=== PATIENT | female | born 1950 | race Caucasian/White ===

== ENCOUNTER 2021-08-28 10:07 | Outpatient (RCR) | payer MEDICARE, BC, SELFPAY ==
[2021-08-28 11:02] LABS: Iron* 137 ug/dL (37-170)
[2021-08-28 11:12] LABS: Total Iron Binding Capacity 260 ug/dL (265-497)
[2021-08-28 11:53] LABS: D Dimer Quantitative* 11.18 ug/ml (0.00-0.50)
[2021-08-28 12:20] LABS: Percent Iron Saturation 53 % (20-50)
== END 2021-08-29 23:59 | disposition home or self-care (01) ==
LOC: CCIC 10:07
PROVIDERS: PCP Family Medicine; Visit Provider Internal Medicine Hematology & Oncology
DX: E03.9 Hypothyroidism, unspecified; R79.89 Other specified abnormal findings of blood chemistry
CPT/HCPCS: 36415; 82565; 82728; 83540; 83550; 84450; 84460; 85025; 85379

== ENCOUNTER 2021-08-28 10:44 | Outpatient (REF) | payer MEDICARE, BC, SELFPAY ==
[2021-08-28 13:08] LABS: Slide Review Reflex No
[2021-08-28 13:16] LABS: Basophils Percent Auto 0.5 % (0.0-3.0); Eosinophils Percent Auto 5.7 % (0.0-7.0); Hematocrit 41.3 % (33.0-51.0); Hemoglobin* 13.4 gm/dL (12.0-16.0); Immature Granulocytes Abs Auto 0.01 K/uL (0.00-0.30); Lymphocytes Percent Auto 25.7 % (20-44); Mean Corpuscular HGB Conc 32 gm/dL (32-36); Mean Corpuscular Hemoglobin 32 pg (26-34); Mean Corpuscular Volume 97 fL (80-100); Monocytes Percent Auto 7.5 % (0.0-11.0); Neutrophils Percent Auto 60.4 % (42.0-72.0); Platelet Count* 277 K/uL (140-440); RDW Coefficient of Variation % 14.2 % (11.5-15.5); Red Blood Count 4.25 m/uL (4.00-5.20); White Blood Count* 4.39 K/uL (4.50-11.00)
[2021-08-28 14:08] LABS: Alanine Aminotransferase* 21 U/L (4-35); Aspartate Amino Transferase* 45 U/L (12-35); Creatinine* 0.6 mg/dL (0.5-1.5)
== END 2021-08-28 10:45 | disposition home or self-care (01) ==
LOC: NPINS 10:44
PROVIDERS: PCP Family Medicine
DX: R79.89 Other specified abnormal findings of blood chemistry (principal); M06.9 Rheumatoid arthritis, unspecified; E03.9 Hypothyroidism, unspecified
CPT/HCPCS: 82565; 84450; 84460; 85025

== ENCOUNTER 2021-09-03 14:13 | Outpatient (RCR) | payer MEDICARE, BC, SELFPAY ==
--- NOTE | 2021-09-20 10:00 | ONC.NURNOTE ---
Received call from [facility] [employer] stating PET was not covered with that diagnosis so patient called and told test was not covered by insurance and she stated Yea I didn't think it would be, thought it might be over kill. Was asking for comparable test and let her know the CT scan she had was. Patient due for visit in January with labs.
== END 2021-09-03 23:59 | disposition home or self-care (01) ==
LOC: CCIC 14:13
PROVIDERS: PCP Family Medicine; Visit Provider Internal Medicine Hematology & Oncology
DX: R79.89 Other specified abnormal findings of blood chemistry (principal); J84.10 Pulmonary fibrosis, unspecified; M06.9 Rheumatoid arthritis, unspecified; D75.89 Other specified diseases of blood and blood-forming organs
CPT/HCPCS: 99213; 99214

== ENCOUNTER 2022-12-01 11:00 | Outpatient (RCR) | payer MEDICARE, BC, SELFPAY | END 2023-02-11 13:45 | disposition home or self-care (01) | PROVIDERS: Visit Provider Orthopaedic Surgery Sports Medicine | DX: M17.11 Unilateral primary osteoarthritis, right knee (principal); Z96.651 Presence of right artificial knee joint; M25.561 Pain in right knee; Z74.09 Other reduced mobility; R26.9 Unspecified abnormalities of gait and mobility; R53.1 Weakness; Z51.89 Encounter for other specified aftercare | CPT/HCPCS: 97110; 97116; 97140; 97161 ==

== ENCOUNTER 2023-03-10 12:52 | Outpatient (RCR) | payer MEDICARE, BC, SELFPAY | END 2023-09-06 23:59 | disposition home or self-care (01) | LOC: CCIC 12:52 | PROVIDERS: PCP Family Medicine; Visit Provider Internal Medicine Hematology & Oncology | DX: R79.89 Other specified abnormal findings of blood chemistry (principal); M06.9 Rheumatoid arthritis, unspecified; J84.10 Pulmonary fibrosis, unspecified | CPT/HCPCS: 99213; 99214; G0463 ==

== ENCOUNTER 2023-05-20 10:45 | Outpatient (RCR) | payer MEDICARE, BC, SELFPAY | END 2023-09-17 23:59 | disposition home or self-care (01) | PROVIDERS: PCP Family Medicine; Visit Provider Podiatrist | DX: M25.571 Pain in right ankle and joints of right foot (principal); M25.572 Pain in left ankle and joints of left foot; Z51.89 Encounter for other specified aftercare; M72.2 Plantar fascial fibromatosis | CPT/HCPCS: 97110; 97140; 97161 ==

== ENCOUNTER 2023-10-28 07:30 | Outpatient (RCR) | payer MEDICARE, BC, SELFPAY | END 2024-02-08 15:58 | disposition home or self-care (01) | PROVIDERS: PCP Family Medicine; Visit Provider Family Medicine | DX: M25.571 Pain in right ankle and joints of right foot (principal); M25.572 Pain in left ankle and joints of left foot; G89.29 Other chronic pain; R26.9 Unspecified abnormalities of gait and mobility; M70.51 Other bursitis of knee, right knee; M62.81 Muscle weakness (generalized); M25.561 Pain in right knee; Z51.89 Encounter for other specified aftercare | CPT/HCPCS: 97110; 97112; 97161 ==

== ENCOUNTER 2024-01-09 12:21 | Inpatient (IN) | payer MEDICARE, BC, SELFPAY ==
[2024-01-09] VITALS (11 sets, daily range): BP systolic 133–192; BP diastolic 73–113; PULSE 95–112; RESP 18; TEMP 37.6–39.9; O2SAT 92–98; BMI 31.6
--- NOTE | 2024-01-09 13:01 | CRLHL7_ITS ---
For Patients: As a result of the Cures Act, medical imaging exams and procedure reports are released immediately into your electronic medical record. You may view this report before your referring provider. If you have questions, please contact your health care provider. INDICATION: : Fever COMPARISON: Chest radiograph on September 16, [address] chest/abdomen/pelvis on May 08, 2020 TECHNIQUE: Two view(s) of the chest FINDINGS: The cardiomediastinal silhouette and pulmonary vasculature are unremarkable. There is no focal airspace consolidation, pleural effusion, or pneumothorax. Interstitial markings, particularly at the bilateral lung bases, consistent with pulmonary fibrosis. No displaced fractures. Calcified intra-articular loose bodies of the left shoulder and degenerative changes of the bilateral shoulders and spine. IMPRESSION: No acute cardiopulmonary process. Dictated by Blayne Daniel MD @ 01/09/2024 2:14:50 PM (Electronically Signed)
--- NOTE | 2024-01-09 13:14 | ED_ITS ---
HPI - General Adult General Date Seen: 01/09/24 Chief complaint: Weakness Stated complaint: Weakness Time Seen by Provider: 01/09/24 12:40 Source: patient, family, RN notes reviewed and old records reviewed Mode of arrival: ambulatory Limitations: no limitations History of Present Illness HPI narrative: Patient is a 73-year-old woman here with her for evaluation of generalized weakness. Her tells me that he went to bed around 9:00 a.m. last night and feels that she was okay at that point but overnight she got up or tried to get up several times, she says she was just getting up, she is not sure why, he thinks she probably was trying to get up to go to the bathroom. In any case, she was not able to support her weight and fell all 3 times. She did bump her right elbow on 1 of those falls but otherwise does not note any specific injuries. Denies focal weakness. She had 1 black stool. They noted a fever this morning of 101.7 along with chills. She has had a little bit of a cough, she denies abdominal pain, nausea or vomiting. No history of GI bleeding. She denies recent history of colonoscopy but her says she has a recent Cologuard that was normal. She is not anticoagulated. No ill contacts. She does not smoke or drink. Related Data Home Medications ?Medication ?Instructions ?Recorded ?Confirmed amlodipine 10 mg tablet 5 mg PO QDAY 09/03/21 01/09/24 calcium carbonate (Calcium 600) 600 mg PO BID 09/03/21 10/22/23 celecoxib 200 mg capsule 200 mg PO BID 09/03/21 10/22/23 etanercept 50 mg/mL (1 mL) 50 mg subcut QWEEK 09/03/21 01/09/24 subcutaneous syringe (Enbrel) folic acid 400 mcg tablet 1.2 mg PO QDAY 09/03/21 01/09/24 levetiracetam 750 mg tablet 750 mg PO QDAY 09/03/21 01/09/24 levothyroxine 125 mcg capsule 125 mcg PO QDAY 09/03/21 10/22/23 loratadine 10 mg tablet (Claritin) 10 mg PO QDAY 09/03/21 10/22/23 methotrexate (PF) 30 mg/0.6 mL 50 mg subcut QWEEK 09/03/21 01/09/24 subcutaneous auto-injector multivitamin 1 tab PO QAM 09/03/21 10/22/23 trazodone 50 mg tablet 100 mg PO QDAY 09/03/21 10/22/23 hydrochlorothiazide 25 mg tablet 25 mg PO DAILY 01/09/24 01/09/24 levetiracetam 500 mg 500 mg PO DAILY 01/09/24 01/09/24 tablet,extended release 24 hr lisinopril 40 mg tablet 40 mg PO DAILY 01/09/24 01/09/24 Allergies Allergy/AdvReac Type Severity Reaction Status Date / Time kiwi Allergy Severe Verified 01/09/24 18:01 erythromycin base Allergy Mild Irritable Verified 01/09/24 18:01 nickel Allergy Unknown Rash Verified 01/09/24 18:01 Review of Systems Status of ROS: Reports: 10 or more systems reviewed and unremarkable except as noted in History and below [facility] Medical History (Updated 01/09/24 @ 19:12 by Antonietta Sherwood MD) Essential hypertension ?I10 - Essential (primary) hypertension (ICD-10) Hypothyroidism ?E03.9 - Hypothyroidism, unspecified (ICD-10) Epilepsy ?G40.909 - Epilepsy, unspecified, not intractable, without status epilepticus (ICD-10) Depression ?F32.A - Depression, unspecified (ICD-10) Rheumatoid arthritis ?M06.9 - Rheumatoid arthritis, unspecified (ICD-10) Weight loss ?R63.4 - Abnormal weight loss (ICD-10) Osteoarthritis of right knee ?M17.11 - Unilateral primary osteoarthritis, right knee (ICD-10) Right ankle tendonitis ?M77.51 - Other enthesopathy of right foot and ankle (ICD-10) Surgical History (Updated 01/09/24 @ 16:58 by Antonietta Sherwood MD) History of ear surgery ?Z98.890 - Other specified postprocedural states (ICD-10) History of ankle surgery (03/19/04) ?Z98.890 - Other specified postprocedural states (ICD-10) History of bunionectomy of right great toe (03/25/05) ?Z98.890 - Other specified postprocedural states (ICD-10) S/P ORIF (open reduction internal fixation) fracture (09/09/11) ?Z98.890 - Other specified postprocedural states (ICD-10) ?Z87.81 - Personal history of (healed) traumatic fracture (ICD-10) Social History (Updated 01/09/24 @ 19:14 by Antonietta Sherwood MD) Narrative: to [place] for >50 years, he would be MDM if needed. Retired from [employer] (worked in [employer]). Former smoker. Requests Full Code status. What is your current living situation?: I presently have a place to live Problems where you live: no known problems Problems where you live details: no known problems In the past 12 months, utilities in danger of being shut off: no In past 12 months, lack of transportation kept you from medical appts, meetings, work, or getting things needed for daily living: no In the past 12 mos, have been you worried that your food would run out before you had money to buy more?: never true In the past 12 mos, the food you bought just didn't last and you didn't have money to buy more?: never true Highest level of school completed/degree received: Associate degree: academic program Smoking Status: Former smoker Do you use any of these nicotine containing products: None How often do you have a drink containing alcohol: never How often do you have six or more drinks on one occasion: Never AUDIT-C Alcohol total score: 0 Non-prescribed substance use: denies use How often does anyone, including family, friends and others, physically hurt you : never How often does anyone, including family, friends and others, insult or talk down to you: never How often does anyone, including family, friends and others, threaten you with harm: never How often does anyone, including family, friends and others, scream or curse at you: never service: No Exam Narrative: Exam Narrative: Vital signs as noted above. In general, an alert, nontoxic elderly woman. Head: Normocephalic, atraumatic. Eyes: Pupils are equal reactive. Extraocular movements are full. Conjunctivae are normal. ENT: Mucous membranes are moist. Throat is normal. Neck: Supple without lymphadenopathy. Heart: Regular rate and rhythm. No murmur or rub. Lungs: Coarse breath sounds bilaterally, no increased work of breathing. Abdomen: Soft and nontender. No organomegaly. Extremities: Well perfused. No edema. No calf tenderness. Pulses intact. Neurologic: Patient is alert and oriented to person and place. Speech is fluent. Face is symmetric. Moves all extremities equally. Memory seems not as reliable as her 's. Affect: Normal. Skin: Warm and dry. Well perfused. Const: Vital Signs, click to edit/add: Vital Signs - 24 hr 01/09/24 12:26 01/09/24 13:41 01/09/24 13:55 Temperature 99.7 F H Pulse Rate [Right Pulse Oximeter] 112 H Respiratory Rate 18 Blood Pressure Blood Pressure [Ri ght Upper Arm] 187/100 H Pulse Oximetry 98 96 96 Oxygen Delivery Me thod Room Air 01/09/24 14:02 01/09/24 14:31 01/09/24 15:07 Temperature Pulse Rate [Right Pulse Oximeter] Respiratory Rate Blood Pressure 192/113 H Blood Pressure [Ri ght Upper Arm] 180/109 H 189/87 H Pulse Oximetry Oxygen Delivery Me thod 01/09/24 16:03 Temperature Pulse Rate [Right Pulse Oximeter] Respiratory Rate Blood Pressure Blood Pressure [Ri ght Upper Arm] 172/90 H Pulse Oximetry Oxygen Delivery Me thod Documenting provider has reviewed patient's vital signs: yes Course Course ED Course: Patient presents with generalized weakness, reported fever, tachycardia. Also reports a single black stool. Will place an IV, give 500 mL of normal saline, blood work ordered to check a hemoglobin, type and screen ordered, as well as evaluation for infectious etiology of symptoms such as pneumonia, urinary tract infection, diverticulitis among others. Labs are notable for an elevated white blood cell count of 15.5 with a left shift, 91% neutrophils. Her hemoglobin notably is 13. Normal platelets. Sodium slightly low 130 remainder of the metabolic panel is normal. Blood sugar 119. Lactate is normal at 0.9 and procalcitonin is normal as well at 0.13. TSH is normal, LFTs unremarkable. CRP is elevated at 13.2. Urinalysis pretty unremarkable, 0-2 red cells and 0-2 white cells. She does seem somewhat confused here, I am not entirely clear what her baseline mental status is but it seems that her does feel she is confused as well today, she does not have any focal neurologic findings however. Chest x-ray was unremarkable by my review, negative per Radiology. She went on to have a CT of the chest abdomen and pelvis read as linked below. She does appear to have possibly a developing pneumonia, but I did recommend or that we do a lumbar puncture to rule out intracranial infection as a source for her fever and mild delirium. Risks and benefits discussed including a 10% risk of spinal headache this as a taking blood patch. He agreed to proceed. Procedure note: Initially patient was unable to remain in a seated position, she just was having difficulty understanding what we wanted her to do seemingly and it was difficult to hold her up. Therefore, we started with lying down position, landmarks identified, skin prepped sterilely and area was anesthetized. I made several attempts at that level and at 1 level up, did try sitting her up, but was unable to obtain spinal fluid. Case discussed with Dr. Sherwood, given patient's immune suppressed status is due to her rheumatoid arthritis, we elected to start her on Zosyn, blood cultures were done before antibiotics were started. Plan will be admission to the hospital. [employer] was able to obtain CSF and this is sent to lab as well. Vital Signs Vital signs: Initial Vital Signs Temperature 99.7 F H 01/09/24 12:26 Temperature Source Temporal Artery Scan 01/09/24 12:26 Pulse Rate 112 H 01/09/24 12:26 Pulse Rhythm Regular 01/09/24 12:26 Pulse Strength 3+ Normal 01/09/24 12:26 Respiratory Rate 18 01/09/24 12:26 Blood Pressure 187/100 H 01/09/24 12:26 Blood Pressure Mean 129 H 01/09/24 12:26 Blood Pressure Position Sitting 01/09/24 12:26 Pulse Oximetry 98 01/09/24 12:26 Oxygen Delivery Method Room Air 01/09/24 12:26 Vital Signs Temperature 99.7 F H 01/09/24 12:26 Pulse Rate 112 H 01/09/24 12:26 Respiratory Rate 18 01/09/24 12:26 Blood Pressure 187/100 H 01/09/24 12:26 Pulse Oximetry 98 01/09/24 12:26 Oxygen Delivery Method Room Air 01/09/24 12:26 Temperature 101.2 F H 01/09/24 19:00 Pulse Rate 95 01/09/24 19:00 Respiratory Rate 18 01/09/24 19:00 Blood Pressure 133/92 H 01/09/24 19:00 Pulse Oximetry 96 01/09/24 19:00 Oxygen Delivery Method Room Air 01/09/24 19:00 Medications Administered Medications: Generic Name Dose Route Start Last Admin Trade Name Coral PRN Reason Stop Dose Admin Vancomycin/PEG/NADA/Lysine/Water 1.25 gm in 250 mls @ 166.667 mls/hr 01/09/24 18:30 01/09/24 18:58 Vancomycin 1.25 Gm/250 Ml IVPB 166.67 mls/hr Q12H ODALIS Administration Discontinued Medications Generic Name Dose Route Start Last Admin Trade Name Freq PRN Reason Stop Dose Admin Sodium Chloride 500 mls @ 500 mls/hr 01/09/24 13:02 01/09/24 14:12 0.9 % Sodium Chloride 500 Ml IV 01/09/24 14:01 Infused .Q1H ONE Infusion Piperacillin Sod/Tazobactam 100 mls @ 100 mls/hr 01/09/24 16:01 01/09/24 16:35 Sod 3.375 gm/ Sodium Chloride IVPB 01/09/24 16:02 100 mls/hr ONCE ONE Administration Medical Decision Making Lab Data Labs: Lab Results 01/09/24 01/09/24 01/09/24 Range/Units 13:02 13:10 13:20 WBC 15.51 H (4.50-11.00) K/uL RBC 3.96 L (4.00-5.20) m/uL Hgb 13.0 (12.0-16.0) gm/dL Hct 39.7 (33.0-51.0) % MCV 100 (80-100) fL MCH 33 (26-34) pg MCHC 33 (32-36) gm/dL RDW Coeff of Mery 15.0 (11.5-15.5) % Plt Count 259 (140-440) K/uL Neut % (Auto) 90.8 H (42.0-72.0) % Lymph % (Auto) 3.2 L (20-44) % [place] % (Auto) 5.5 (0.0-11.0) % Eos % (Auto) 0.0 (0.0-7.0) % Baso % (Auto) 0.3 (0.0-3.0) % Neut # (Auto) 14.10 H (1.7-7.0) K/uL Lymph # (Auto) 0.50 L (0.90-2.90) K/uL [place] # (Auto) 0.90 (0.00-0.90) K/UL Eos # (Auto) 0.00 (0.00-0.50) K/uL Baso # (Auto) 0.00 (0.00-0.30) K/uL Abs Immat Gran (auto) 0.00 (0.00-0.30) K/uL Imm/Tot Granulo (auto) 0.2 % Sodium 130 L (135-149) mmol/L Potassium 4.2 (3.6-5.1) mmol/L Chloride 97 (96-114) mmol/L Carbon Dioxide 24 (20-32) mmol/L Anion Gap 9 (7-15) mEq/L BUN 11 (7-30) mg/dL Creatinine 0.6 (0.5-1.5) mg/dL Estimated Creat Clear 45.76 Estimated GFR 95 ml/min Glucose 119 H (60-115) mg/dL Lactate 0.9 (0.5-1.9) mmol/L Calcium 9.1 (8.4-10.6) mg/dL Total Bilirubin 0.7 (0.1-1.5) mg/dL Direct Bilirubin 0.3 (0.0-0.5) mg/dL AST 29 (12-35) U/L ALT 21 (4-35) U/L Alkaline Phosphatase 92 (40-150) U/L C-Reactive Protein 13.2 H (0.5-1.0) mg/dL Total Protein 7.1 (6.0-8.3) g/dL Albumin 4.2 (3.3-5.0) g/dL Procalcitonin 0.13 (<0.50) ng/mL TSH 0.429 (0.270-4.200) uIU/mL CSF Volume (0-6) mL CSF Appearance (Clear) CSF Color (Colorless) CSF WBC Cells/uL CSF RBC Cells/uL CSF Mononuclear Cells % CSF Polynuclear WBCs % CSF Glucose (40-70) mg/dL CSF Total Protein (15-45) Mg/dL SARS-CoV-2 (PCR) Negative SARS-CoV-2 (Negative) Influenza Type A (PCR) Negative PCR FLU A (Negative) Influenza Type B (PCR) Negative PCR FLU B (Negative) RSV (PCR) Negative PCR RSV (Negative) POC Troponin I 0.02 (0.01-0.04) ng/ml Blood Type O Positive Antibody Screen NEGATIVE 01/09/24 Range/Units 16:34 WBC (4.50-11.00) K/uL RBC (4.00-5.20) m/uL Hgb (12.0-16.0) gm/dL Hct (33.0-51.0) % MCV (80-100) fL MCH (26-34) pg MCHC (32-36) gm/dL RDW Coeff of Mery (11.5-15.5) % Plt Count (140-440) K/uL Neut % (Auto) (42.0-72.0) % Lymph % (Auto) (20-44) % [place] % (Auto) (0.0-11.0) % Eos % (Auto) (0.0-7.0) % Baso % (Auto) (0.0-3.0) % Neut # (Auto) (1.7-7.0) K/uL Lymph # (Auto) (0.90-2.90) K/uL [place] # (Auto) (0.00-0.90) K/UL Eos # (Auto) (0.00-0.50) K/uL Baso # (Auto) (0.00-0.30) K/uL Abs Immat Gran (auto) (0.00-0.30) K/uL Imm/Tot Granulo (auto) % Sodium (135-149) mmol/L Potassium (3.6-5.1) mmol/L Chloride (96-114) mmol/L Carbon Dioxide (20-32) mmol/L Anion Gap (7-15) mEq/L BUN (7-30) mg/dL Creatinine (0.5-1.5) mg/dL Estimated Creat Clear Estimated GFR ml/min Glucose (60-115) mg/dL Lactate (0.5-1.9) mmol/L Calcium (8.4-10.6) mg/dL Total Bilirubin (0.1-1.5) mg/dL Direct Bilirubin (0.0-0.5) mg/dL AST (12-35) U/L ALT (4-35) U/L Alkaline Phosphatase (40-150) U/L C-Reactive Protein (0.5-1.0) mg/dL Total Protein (6.0-8.3) g/dL Albumin (3.3-5.0) g/dL Procalcitonin (<0.50) ng/mL TSH (0.270-4.200) uIU/mL CSF Volume 8.0 H (0-6) mL CSF Appearance Clear (Clear) CSF Color Colorless (Colorless) CSF WBC 0 Cells/uL CSF RBC 2 Cells/uL CSF Mononuclear Cells 0 % CSF Polynuclear WBCs 0 % CSF Glucose 65 (40-70) mg/dL CSF Total Protein 46 H (15-45) Mg/dL SARS-CoV-2 (PCR) (Negative) Influenza Type A (PCR) (Negative) Influenza Type B (PCR) (Negative) RSV (PCR) (Negative) POC Troponin I (0.01-0.04) ng/ml Blood Type Antibody Screen Imaging Data CT Chest/Ab/Pelvis: Attestation: I have reviewed the pertinent imaging results. Radiologist's impression: Patient: WINNIE SCOTT Facility: [facility] Site . Site : 1950 Study: CT-Chest/Abd/Pelvis W/ 89CC ISOVUE 370-01/09/2024 2:34:16 PM Ordering Physician: Heather Otto Final Report: Indication: Fever Technique: Volumetric multidetector CT images of the chest, abdomen, and pelvis were obtained after the administration of intravenous contrast. 89 cc Isovue 370 low osmolar intravenous contrast Comparison: CT chest, abdomen and pelvis May 08, 2020 FINDINGS: CHEST The thoracic inlet is unremarkable. The thyroid gland is within normal limits. The thoracic aorta is nonaneurysmal. There is no filling defect to suggest pulmonary embolus. There is no mediastinal, hilar, or axillary adenopathy. There is [id number] basilar atelectasis and parenchymal scar with moderate pulmonary fibrosis of the peripheral lower lobes. There is questionable minimal airspace opacity within the right superior segment of the lower lobe and inferior segments of the right upper lobe commensurate with likely dense consolidations. The thoracic osseus structures are intact without fracture, lytic, or blastic lesion. The thoracic vertebral body heights are grossly maintained with minimal endplate Schmorl`s defects. There is no significant spondylolisthesis or displaced fracture. ABDOMEN AND PELVIS Minimal cystic change of the right liver is again seen. Otherwise the liver is grossly within normal limits. The spleen is normal in attenuation and size. The gallbladder is unremarkable without radiopaque calculus. There is no intrahepatic or common ductal dilatation. The stomach and duodenum are grossly unremarkable. The pancreas is normal in enhancement without significant atrophy. The adrenal glands are unremarkable without evidence of adenoma. There is interval atrophy of the right kidney with compensatory hypertrophy of the left kidney from remote comparison exam. No evidence of obvious obstructive calculus. There is demonstration of likely severe atherosclerotic narrowing at the origin of the right renal artery. Otherwise, corticomedullary differentiation is somewhat limited due to respiratory motion artifact. Subtle streaky defects within the inferior left kidney may be difficult to exclude. Moderate stool seen throughout the colon with fluid-filled central small bowel. The appendix is unremarkable without significant inflammatory change. The abdominal aorta is nonaneurysmal with no significant atherosclerotic disease. The remaining solid pelvic viscera are otherwise grossly unremarkable. There is no pathologically enlarged epigastric, mesenteric, retroperitoneal, or pelvic sidewall lymph node. The anterior abdominal wall is grossly intact without significant hernias. There is no free air or free fluid. The visualized osseous structures are grossly intact without evidence of displaced fracture, lytic or blastic lesion. The lumbar vertebral body heights are grossly maintained with minimal endplate Schmorl`s defects. There is moderate facet arthrosis. No evidence of lytic or blastic lesion. Impression: 1. Moderate pulmonary fibrotic changes of the peripheral lower lobes with increasing superimposed interstitial and ground-glass opacities which may representing worsening pneumonitis changes and/or developing superimposed infiltrates. No other dense consolidation is identified. 2. Interval development of right sided renal atrophy with likely high-grade atherosclerotic narrowing of the right renal artery with focal atherosclerotic plaque. There is compensatory hypertrophic changes of the left kidney. Somewhat limited evaluation of the kidneys with questionable corticomedullary streaks in the inferior left kidney which could represent developing pyelonephritis c hanges. Correlate with urinalysis and history of clinical symptoms. 3. No other acute intra-abdominal abnormality is appreciated.
[2024-01-09 13:21] LABS: Lactate Sepsis w/Reflex* 0.9 mmol/L (0.5-1.9)
[2024-01-09 13:24] LABS: Basophils Percent Auto 0.3 % (0.0-3.0); Hematocrit 39.7 % (33.0-51.0); Immature Granulocytes Pct Auto 0.2 %; Lymphocytes Percent Auto 3.2 % (20-44); Mean Corpuscular HGB Conc 33 gm/dL (32-36); Mean Corpuscular Hemoglobin 33 pg (26-34); Mean Corpuscular Volume 100 fL (80-100); Monocytes Percent Auto 5.5 % (0.0-11.0); Neutrophils Percent Auto 90.8 % (42.0-72.0); Platelet Count* 259 K/uL (140-440); Red Blood Count 3.96 m/uL (4.00-5.20); White Blood Count* 15.51 K/uL (4.50-11.00)
[2024-01-09 13:28] LABS: Slide Review Reflex No
[2024-01-09 13:30] LABS: Troponin, Point-of-Care* 0.02 ng/ml (0.01-0.04)
[2024-01-09 13:39] LABS: Chloride* 97 mmol/L (96-114); Potassium* 4.2 mmol/L (3.6-5.1); Sodium* 130 mmol/L (135-149)
[2024-01-09 13:40] LABS: Albumin* 4.2 g/dL (3.3-5.0)
[2024-01-09] MEDS: 0.9 % SODIUM CHLORIDE 500 ML 500 ML IV (13:40)
[2024-01-09 13:42] LABS: Creatinine* 0.6 mg/dL (0.5-1.5); Est. Creatinine Clearance* 45.76; Estimated Glomerular Filt Rate 95 ml/min
[2024-01-09 13:43] LABS: Anion Gap 9 mEq/L (7-15); Aspartate Amino Transferase* 29 U/L (12-35); Bilirubin Direct* 0.3 mg/dL (0.0-0.5); Bilirubin Total* 0.7 mg/dL (0.1-1.5); Blood Urea Nitrogen* 11 mg/dL (7-30); Calcium* 9.1 mg/dL (8.4-10.6); Carbon Dioxide* 24 mmol/L (20-32); Glucose* 119 mg/dL (60-115); Total Protein* 7.1 g/dL (6.0-8.3)
[2024-01-09 13:43] LABS: Appearance Urine Clear (Clear); Bilirubin Urine Negative (Negative); Blood Urine 1+ (Negative); Color Urine Yellow (Yellow); Glucose Urine Negative (Negative); Ketones Urine Negative (Negative); Leukocyte Esterase Urine Negative (Negative); Nitrite Urine Negative (Negative); Protein Urine 2+ (Negative); Urobilinogen Urine 0.2 (0.2-1.0)
[2024-01-09 13:44] LABS: Alanine Aminotransferase* 21 U/L (4-35); Alkaline Phosphatase* 92 U/L (40-150)
[2024-01-09 13:56] LABS: C Reactive Protein* 13.2 mg/dL (0.5-1.0)
[2024-01-09 14:00] LABS: Procalcitonin* 0.13 ng/mL (<0.50)
[2024-01-09 14:04] LABS: PCR FLU A Negative PCR FLU A (Negative); PCR FLU B Negative PCR FLU B (Negative); PCR RSV Negative PCR RSV (Negative); SARS PCR* Negative SARS-CoV-2 (Negative)
--- NOTE | 2024-01-09 14:08 | CRLHL7_ITS ---
For Patients: As a result of the Century Cures Act, medical imaging exams and procedure reports are released immediately into your electronic medical record. You may view this report before your referring provider. If you have questions, please contact your health care provider. Indication: Fever Technique: Volumetric multidetector CT images of the chest, abdomen, and pelvis were obtained after the administration of intravenous contrast. 89 cc Isovue 370 low osmolar intravenous contrast Comparison: CT chest, abdomen and pelvis May 08, 2020 FINDINGS: CHEST The thoracic inlet is unremarkable. The thyroid gland is within normal limits. The thoracic aorta is nonaneurysmal. There is no filling defect to suggest pulmonary embolus. There is no mediastinal, hilar, or axillary adenopathy. There is [id number] basilar atelectasis and parenchymal scar with moderate pulmonary fibrosis of the peripheral lower lobes. There is questionable minimal airspace opacity within the right superior segment of the lower lobe and inferior segments of the right upper lobe commensurate with likely dense consolidations. The thoracic osseus structures are intact without fracture, lytic, or blastic lesion. The thoracic vertebral body heights are grossly maintained with minimal endplate Schmorl`s defects. There is no significant spondylolisthesis or displaced fracture. ABDOMEN AND PELVIS Minimal cystic change of the right liver is again seen. Otherwise the liver is grossly within normal limits. The spleen is normal in attenuation and size. The gallbladder is unremarkable without radiopaque calculus. There is no intrahepatic or common ductal dilatation. The stomach and duodenum are grossly unremarkable. The pancreas is normal in enhancement without significant atrophy. The adrenal glands are unremarkable without evidence of adenoma. There is interval atrophy of the right kidney with compensatory hypertrophy of the left kidney from remote comparison exam. No evidence of obvious obstructive calculus. There is demonstration of likely severe atherosclerotic narrowing at the origin of the right renal artery. Otherwise, corticomedullary differentiation is somewhat limited due to respiratory motion artifact. Subtle streaky defects within the inferior left kidney may be difficult to exclude. Moderate stool seen throughout the colon with fluid-filled central small bowel. The appendix is unremarkable without significant inflammatory change. The abdominal aorta is nonaneurysmal with no significant atherosclerotic disease. The remaining solid pelvic viscera are otherwise grossly unremarkable. There is no pathologically enlarged epigastric, mesenteric, retroperitoneal, or pelvic sidewall lymph node. The anterior abdominal wall is grossly intact without significant hernias. There is no free air or free fluid. The visualized osseous structures are grossly intact without evidence of displaced fracture, lytic or blastic lesion. The lumbar vertebral body heights are grossly maintained with minimal endplate Schmorl`s defects. There is moderate facet arthrosis. No evidence of lytic or blastic lesion. Impression: 1. Moderate pulmonary fibrotic changes of the peripheral lower lobes with increasing superimposed interstitial and ground-glass opacities which may representing worsening pneumonitis changes and/or developing superimposed infiltrates. No other dense consolidation is identified. 2. Interval development of right sided renal atrophy with likely high-grade atherosclerotic narrowing of the right renal artery with focal atherosclerotic plaque. There is compensatory hypertrophic changes of the left kidney. Somewhat limited evaluation of the kidneys with questionable corticomedullary streaks in the inferior left kidney which could represent developing pyelonephritis changes. Correlate with urinalysis and history of clinical symptoms. 3. No other acute intra-abdominal abnormality is appreciated. Please note that all CT scans at this facility use dose modulation, iterative reconstruction, and/or weight-based dosing when appropriate to reduce radiation dose to as low as reasonably achievable. Dictated by Jerrod Grigsby MD @ 01/09/2024 3:13:27 PM (Electronically Signed)
[2024-01-09 14:09] LABS: Bacteria Urine Few; RBC Urine 0-2 (0-2); Squamous Epithelial Cell Urine Few (None-Few); WBC Urine 0-2 (0-5)
[2024-01-09 14:33] LABS: TSH With Reflex to FT4* 0.429 uIU/mL (0.270-4.200)
--- NOTE | 2024-01-09 16:11 | RESP.RT ---
Assisted with positioning patient for lumbar puncture, and monitoring.
[2024-01-09] MEDS: PIPERACILLIN/TAZOBACTAM 3.375 GM in 0.9 % SODIUM CHLORIDE Mini-bag 100 ML IVPB (16:35)
--- NOTE | 2024-01-09 16:54 | PM.PRCPDLP ---
Lumbar Puncture Procedure Performed by:: BENITO Time Seen by Provider: 16:20 Date Seen: 01/09/24 Date of procedure: 01/09/24 Pre-op diagnosis: infection Post-op diagnosis: same Position: sitting Prep: chlorhexidine Anesthesia: 1 % Lidocaine Sedation: none Needle size: 22ga Needle length: 3.5 Interspace: L3-4 Number of attempts: 1 Opening pressure: not done Fluids mLs collected: 6 Fluid description: clear Complications: No Patient tolerance: Tolerated procedure well Procedure performed by: Manfred Lam Condition: stable Disposition: floor
--- NOTE | 2024-01-09 16:58 | W.ANESCHARGE ---
Anesthesia Charges Start Date/Time Anesthesia Start Date: 01/09/24 Anesthesia Start Time: 16:20 Stop Date/Time Anesthesia Stop Date: 01/09/24 Anesthesia Stop Time: 16:45 Summary Extremes of Age - Over 70 or under 1: RESIDENTIAL MORTGAGE MANAGER
--- NOTE | 2024-01-09 16:59 | P.IMHP_ITS ---
Hospitalist- H&P: HPI History of Present Illness Date Seen: 01/09/24 Chief complaint: Weakness Narrative: Brenda Malcolm is a 73 year old female who presented to the ER for weakness and fever. Sherry assists with history. Last night, patient went to bed in normal state of health. Fell thrice overnight (presumably getting up to use the bathroom), no concern for head injury or LOC. She did bump her R elbow during a fall, has a small abrasion. Had one dark stool overnight. Notes mild diffuse abdominal discomfort. No back pain or dysuria. Intermittent R jaw pain during the day. No recent dental visits or infections. This morning, still weak with a fever (T >101), presented to who recommended ER. ER Course and Findings: - temperature of 99.7, HR 112, WBC 15 with PMN predominance - no acute abnormalities on EKG - CT C/A/P: lower lobe fibrotic changes with GGOs (worsening pneumonitis and/or developing infiltrates), also noted to have R sided renal atrophy with concern for high grade atherosclerotic narrowing of R renal artery - UA reassuring - HGb 13, normal MCV, BUN 11, Cr 0.6, CRP 13, procalcitonin wnl - LP performed by DATA BASE ADMINISTRATOR - BCx x1 obtained, treated with Zosyn - seemed confused, mildly restless. No localized neurological findings Upon arrival to the floor, patient's temperature was 100; on visual exam she had R sided facial/jaw edema. notes this was not present in the ER. CT neck ordered urgently, results + for R parotitis. Histories updated below, Dr. Sharon Sims is PCP at [facility]. Review of Systems Narrative: - no other concerns noted [facility] Medical History (Updated 01/09/24 @ 20:02 by Antonietta Sherwood MD) Essential hypertension ?I10 - Essential (primary) hypertension (ICD-10) Hypothyroidism ?E03.9 - Hypothyroidism, unspecified (ICD-10) Epilepsy ?G40.909 - Epilepsy, unspecified, not intractable, without status epilepticus (ICD-10) Depression ?F32.A - Depression, unspecified (ICD-10) Rheumatoid arthritis ?M06.9 - Rheumatoid arthritis, unspecified (ICD-10) Weight loss ?R63.4 - Abnormal weight loss (ICD-10) Osteoarthritis of right knee ?M17.11 - Unilateral primary osteoarthritis, right knee (ICD-10) Right ankle tendonitis ?M77.51 - Other enthesopathy of right foot and ankle (ICD-10) Surgical History (Updated 01/09/24 @ 16:58 by Antonietta Sherwood MD) History of ear surgery ?Z98.890 - Other specified postprocedural states (ICD-10) History of ankle surgery (03/19/04) ?Z98.890 - Other specified postprocedural states (ICD-10) History of bunionectomy of right great toe (03/25/05) ?Z98.890 - Other specified postprocedural states (ICD-10) S/P ORIF (open reduction internal fixation) fracture (09/09/11) ?Z98.890 - Other specified postprocedural states (ICD-10) ?Z87.81 - Personal history of (healed) traumatic fracture (ICD-10) Social History (Updated 01/09/24 @ 19:14 by Antonietta Sherwood MD) Narrative: to [place] for >50 years, he would be MDM if needed. Retired from [email or web address] (worked in [employer]). Former smoker. Requests Full Code status. What is your current living situation?: I presently have a place to live Problems where you live: no known problems Problems where you live details: no known problems In the past 12 months, utilities in danger of being shut off: no In past 12 months, lack of transportation kept you from medical appts, meetings, work, or getting things needed for daily living: no In the past 12 mos, have been you worried that your food would run out before you had money to buy more?: never true In the past 12 mos, the food you bought just didn't last and you didn't have money to buy more?: never true Highest level of school completed/degree received: Associate degree: academic program Smoking Status: Former smoker Do you use any of these nicotine containing products: None How often do you have a drink containing alcohol: never How often do you have six or more drinks on one occasion: Never AUDIT-C Alcohol total score: 0 Non-prescribed substance use: denies use How often does anyone, including family, friends and others, physically hurt you : never How often does anyone, including family, friends and others, insult or talk down to you: never How often does anyone, including family, friends and others, threaten you with harm: never How often does anyone, including family, friends and others, scream or curse at you: never service: No Meds Home Medications and Allergies Home Medications ?Medication ?Instructions ?Recorded ?Confirmed ?Type amlodipine 10 mg tablet 5 mg PO QDAY 09/03/21 01/09/24 History calcium carbonate (Calcium 600) 600 mg PO BID 09/03/21 10/22/23 History celecoxib 200 mg capsule 200 mg PO BID 09/03/21 10/22/23 History etanercept 50 mg/mL (1 mL) 50 mg subcut QWEEK 09/03/21 01/09/24 History subcutaneous syringe (Enbrel) folic acid 400 mcg tablet 1.2 mg PO QDAY 09/03/21 01/09/24 History levetiracetam 750 mg tablet 750 mg PO QDAY 09/03/21 01/09/24 History levothyroxine 125 mcg capsule 125 mcg PO QDAY 09/03/21 10/22/23 History loratadine 10 mg tablet (Claritin) 10 mg PO QDAY 09/03/21 10/22/23 History methotrexate (PF) 30 mg/0.6 mL 50 mg subcut QWEEK 09/03/21 01/09/24 History subcutaneous auto-injector multivitamin 1 tab PO QAM 09/03/21 10/22/23 History trazodone 50 mg tablet 100 mg PO QDAY 09/03/21 10/22/23 History hydrochlorothiazide 25 mg tablet 25 mg PO DAILY 01/09/24 01/09/24 History levetiracetam 500 mg 500 mg PO DAILY 01/09/24 01/09/24 History tablet,extended release 24 hr lisinopril 40 mg tablet 40 mg PO DAILY 01/09/24 01/09/24 History Allergies Allergy/AdvReac Type Severity Reaction Status Date / Time kiwi Allergy Severe Verified 01/09/24 18:01 erythromycin base Allergy Mild Irritable Verified 01/09/24 18:01 nickel Allergy Unknown Rash Verified 01/09/24 18:01 Exam Narrative: Exam Narrative: GEN: Awake in bed, does not appear toxic HEENT: Erythema and edema over R face/jaw, + induration. No fluctuance. No trismus, no obvious dental caries. No cervical adenopathy. Patient did not tolerate exam of parotid gland well, no obvious purulent discharge noted CV: Sinus tachycardia, no obvious murmurs R: LCTA bilaterally without concerning wheezing Ext: Thin extremities with Skin: Erythema over R jaw and neck. Small abrasion R elbow Neuro: No focal deficits on limited exam, no resting tremor Psych: Answering most questions appropriately, distracted but redirectable, appears restless Const: Vital Signs, click to edit/add: Vital Signs - 24 hr 01/09/24 12:26 01/09/24 13:41 01/09/24 13:55 Temperature 99.7 F H Pulse Rate [Right Pulse Oximeter] 112 H Respiratory Rate 18 Blood Pressure Blood Pressure [Ri ght Upper Arm] 187/100 H Pulse Oximetry 98 96 [facility] 01/09/24 14:02 01/09/24 14:31 01/09/24 15:07 Temperature Pulse Rate [Right Pulse Oximeter] Respiratory Rate Blood Pressure 192/113 H Blood Pressure [Ri ght Upper Arm] 180/109 H 189/87 H Pulse Oximetry Oxygen Delivery Me thod 01/09/24 16:03 Temperature Pulse Rate [Right Pulse Oximeter] Respiratory Rate Blood Pressure Blood Pressure [Ri ght Upper Arm] 172/90 H Pulse Oximetry [facility] - H&P: Result Labs Labs: Short CBC 01/09/24 Range/Units 13:10 WBC 15.51 H (4.50-11.00) K/uL Hgb 13.0 (12.0-16.0) gm/dL Hct 39.7 (33.0-51.0) % Plt Count 259 (140-440) K/uL BMP 01/09/24 13:10 Sodium 130 L Potassium 4.2 Chloride 97 Carbon Dioxide 24 BUN 11 Creatinine 0.6 Glucose 119 H Calcium 9.1 Liver Function 01/09/24 Range/Units 13:10 Total Bilirubin 0.7 (0.1-1.5) mg/dL Direct Bilirubin 0.3 (0.0-0.5) mg/dL AST 29 (12-35) U/L ALT 21 (4-35) U/L Alkaline Phosphatase 92 (40-150) U/L Albumin 4.2 (3.3-5.0) g/dL Urine 01/09/24 Range/Units Unknown Urine Color Yellow (Yellow) Urine Appearance Clear (Clear) Urine pH 7.0 (5.0-8.5) Ur Specific [place] 1.020 (1.000-1.030) Urine Protein 2+ A (Negative) Urine Glucose (UA) Negative (Negative) Assessment and Plan Assessment and plan (1) Sepsis: Problem comment: - as evidenced by fever, leukocytosis with PMN predominance, tachycardia - parotitis most likely source - LP performed in ED (prior to facial edema/erythema), results pending, BCx also pending Status: Acute (2) Confusion: Problem comment: - presumably 2/2 acute illness/fever, doesn't appear post-ictal - monitor closely, anticipate improvement with antibiotic therapy Status: Acute (3) Parotitis, acute: Problem comment: - transition from Zosyn to Unasyn + Vancomycin 01/09/24 - per chart review, has had multiple episodes of this, last hospitalized in July [address] [facility], I&D performed at that time (Haemophilis and Parainfluenza on path) - has previously seen ENT as an outpatient to discuss surgical intervention Status: Acute (4) Epilepsy: Problem comment: - first seizure 2011, last seizure 2021 - follows with Dr. Lam of Neurology, on Keppra (dose recently decreased from 750 -->500mg per chart review) - Last MRI 2022, results below: IMPRESSION: 1. No evidence of acute ischemic infarction intracranial hemorrhage or mass. 2. Supratentorial cerebral white matter signal changes are nonspecific but consistent with chronic small vessel ischemic disease less likely chronic de myelination. 3. Few opacified left mastoid air cells. Status: Acute (5) Essential hypertension: Problem comment: - continue home HCTZ and Amlodipine during stay - holding Lisinopril given CT contrast administration x2 on 01/08 and new renal findings on imaging Status: Acute (6) Rheumatoid arthritis: Problem comment: - on Enbrel and Methotrexate as an outpatient (holding these on admission) - Business Insight And Analytics Manager is Dr. Debbie Louis in [place], [facility], ph# [phone] Status: Acute (7) Renal atrophy, right: Problem comment: - incidental finding on CT 01/09/24, in addition to likely high grade narrowing of the renal artery - normal renal function - outpatient f/u for this Status: Acute (8) Lung nodule seen on imaging study: Problem comment: - 4mm, L apical - seen on CT of neck - outpatient f/u Status: Acute
[2024-01-09 17:15] LABS: Glucose, CSF* 65 mg/dL (40-70); Total Protein, CSF 46 Mg/dL (15-45)
--- NOTE | 2024-01-09 17:21 | CRLHL7_ITS ---
For Patients: As a result of the Century Cures Act, medical imaging exams and procedure reports are released immediately into your electronic medical record. You may view this report before your referring provider. If you have questions, please contact your health care provider. INDICATION: Erythema and edema right mandible. TECHNIQUE: CT soft tissue of the neck was acquired with 99 cc Isovue 370 IV contrast. COMPARISON: None. FINDINGS: Exam is limited by patient motion. Skull base: Unremarkable. Pharynx/Larynx/Trachea: Epiglottis is normal. Airway is patent. Adjacent soft tissues are normal. Salivary glands: Right parotid gland is enlarged and edematous with surrounding soft tissue edema/inflammation. Remainder of the salivary glands are unremarkable. Thyroid gland: Unremarkable. No significant nodules. Lymph nodes: No lymphadenopathy. Vessels: Unremarkable for age. Bones: Unremarkable for age. Misc: No inflammation, mass or fluid collection. Lung apices: A 4 mm nodule is in the anterior left lung apex series 3, image 86. IMPRESSION: 1. Acute right-sided parotitis. 2. Indeterminate 4 mm left apical lung nodule. Please note that all CT scans at this facility use dose modulation, iterative reconstruction, and/or weight-based dosing when appropriate to reduce radiation dose to as low as reasonably achievable. Dictated by Chino Gorman MD @ 01/09/2024 6:18:19 PM (Electronically Signed)
[2024-01-09 17:27] LABS: Appearance CSF Clear (Clear); Color CSF Colorless (Colorless)
[2024-01-09 17:28] LABS: CSF Mononuclear Cells 0 %; CSF Polynuclear Cells 0 %; RBC, CSF 2 Cells/uL; WBC, CSF 0 Cells/uL
[2024-01-09] MEDS: VANCOMYCIN 1.25 GM/250 ML 1.25 GM/250 ML PIGGYBACK IVPB (18:58)
[2024-01-09] MEDS: AMLODIPINE 10 MG TABLET 5 MG PO (19:36)
[2024-01-09] MEDS: AMPICILLIN/SULBACTAM 1.5 GM in 0.9 % SODIUM CHLORIDE Mini-bag 100 ML IVPB (21:04)
[2024-01-09] MEDS: 0.9 % SODIUM CHLORIDE 1000 ml 1,000 ML 100 ML IV (22:41)
[2024-01-09] MEDS: IBUPROFEN 600 MG TABLET PO (23:24)
[2024-01-10] VITALS (12 sets, daily range): BP systolic 144–161; BP diastolic 66–81; PULSE 85–97; RESP 18; TEMP 36.8–37.7; O2SAT 95–97
[2024-01-10] MEDS: AMPICILLIN/SULBACTAM 1.5 GM in 0.9 % SODIUM CHLORIDE Mini-bag 100 ML IVPB ×4 (04:36→19:31)
--- NOTE | 2024-01-10 06:41 | PC.NURSE ---
Shift note: Pt was confused and disoriented at the start of the shift. She had fever of 101.2 and 103.9 at 1900 and 2300 respectfully. MD informed and ordered Ibuprofen. Temp rechecked at 0000 and 0400 were 99.9 and 99.3 respectively. Pt appeared more alert and oriented at 0400. A2 to bedside commode. Pt had good sleep. Droplet precaution ensured.
[2024-01-10 06:49] LABS: Chloride* 101 mmol/L (96-114); Sodium* 131 mmol/L (135-149)
[2024-01-10 06:50] LABS: Potassium* 3.2 mmol/L (3.6-5.1)
[2024-01-10 06:52] LABS: Creatinine* 0.6 mg/dL (0.5-1.5); Est. Creatinine Clearance* 45.76; Estimated Glomerular Filt Rate 95 ml/min
[2024-01-10 06:53] LABS: Anion Gap 7 mEq/L (7-15); Blood Urea Nitrogen* 13 mg/dL (7-30); Carbon Dioxide* 23 mmol/L (20-32)
[2024-01-10 06:56] LABS: Calcium* 8.4 mg/dL (8.4-10.6); Glucose* 133 mg/dL (60-115)
[2024-01-10] MEDS: VANCOMYCIN 1.25 GM/250 ML 1.25 GM/250 ML PIGGYBACK IVPB (07:05)
[2024-01-10 07:08] LABS: C Reactive Protein* 16.6 mg/dL (0.5-1.0)
[2024-01-10 07:24] LABS: Basophils Percent Auto 0.1 % (0.0-3.0); Hematocrit 36.8 % (33.0-51.0); Immature Granulocytes Pct Auto 0.7 %; Lymphocytes Percent Auto 3.1 % (20-44); Mean Corpuscular HGB Conc 33 gm/dL (32-36); Mean Corpuscular Hemoglobin 33 pg (26-34); Mean Corpuscular Volume 100 fL (80-100); Monocytes Percent Auto 7.1 % (0.0-11.0); Platelet Count* 237 K/uL (140-440); RDW Coefficient of Variation % 14.8 % (11.5-15.5); Red Blood Count 3.67 m/uL (4.00-5.20); White Blood Count* 24.81 K/uL (4.50-11.00)
[2024-01-10 07:31] LABS: Slide Review Reflex No
[2024-01-10] MEDS: AMLODIPINE 10 MG TABLET 5 MG PO (10:01)
[2024-01-10] MEDS: levETIRAcetam 500 MG TABLET PO (10:02)
[2024-01-10] MEDS: POTASSIUM BICARB 25 MEQ EFFERVESCENT TAB PO ×2 (10:41→12:32)
[2024-01-10] MEDS: 0.9 % SODIUM CHLORIDE 1000 ml 1,000 ML 100 ML IV (11:34)
--- NOTE | 2024-01-10 14:38 | PM.IMPN1 ---
Progress Note: A&P Assessment and plan (1) Sepsis: Problem details: - as evidenced by fever, leukocytosis with PMN predominance, tachycardia - parotitis most likely source - LP performed in ED (prior to facial edema/erythema), results pending, BCx also pending - 01/09 improving. Status: Acute (2) Confusion: Problem details: - presumably 2/2 acute illness/fever, doesn't appear post-ictal - monitor closely, anticipate improvement with antibiotic therapy - improving Status: Acute (3) Parotitis, acute: Problem details: - transition from Zosyn to Unasyn + Vancomycin 01/09/24 - per chart review, has had multiple episodes of this, last hospitalized in July 2023 at [facility], I&D performed at that time (Haemophilis and Parainfluenza on path) - has previously seen ENT as an outpatient to discuss surgical intervention - 01/[address] Henrietta Bullock over the phone who agreed with medical management. He recommended, in addition to IV antibiotics, hot packs several times a day, okay to advance diet as tolerated, milk the parotid gland after every meal as pain will allow. I relayed these recommendations to the patient and her family. Have ordered for hot pack 4 times a day. Status: Acute (4) Epilepsy: Problem details: - first seizure 2011, last seizure 2021 - follows with Dr. Lam of Neurology, on Keppra (dose recently decreased from 750 -->500mg per chart review) - Last MRI 2022, results below: IMPRESSION: 1. No evidence of acute ischemic infarction intracranial hemorrhage or mass. 2. Supratentorial cerebral white matter signal changes are nonspecific but consistent with chronic small vessel ischemic disease less likely chronic demyelination. 3. Few opacified left mastoid air cells. Status: Chronic (5) Essential hypertension: Problem details: - continue home HCTZ and Amlodipine during stay - holding Lisinopril given CT contrast administration x2 on 01/08 and new renal findings on imaging Status: Chronic (6) Rheumatoid arthritis: Problem details: - on Enbrel and Methotrexate as an outpatient (holding these on admission) - Hat Brim Curler is Dr. Debbie Louis in [place], [facility], ph# [phone] Status: Chronic (7) Renal atrophy, right: Problem details: - incidental finding on CT 01/09/24, in addition to likely high grade narrowing of the renal artery - normal renal function - outpatient f/u for this Status: Acute (8) Lung nodule seen on imaging study: Problem details: - 4mm, L apical - seen on CT of neck - outpatient f/u Status: Acute Subjective Time Seen by Provider: 09:45 Date Seen: 01/10/24 Interval history: Brenda's , Devyn was at her bedside. He called their daughter, Itzel, who was on speaker phone. Alissa told me that she is feeling a bit better today. Devyn noted that she was much more alert and less confused today. He noted that she still had some confusion, but it was much better. He and Itzel told me that Alissa had been to the outpatient ENT appointment and discussed parotidectomy, but ultimately decided not to go forward with that. Since this is her 3rd episode on the same side of her face now, they are more strongly considering surgery in the future. He has been helping her express her parotid gland on the right side once a day at home. Exam Narrative: Exam Narrative: General: No acute distress. Awake, alert, oriented x3. No pallor. No jaundice. Right face and jaw are edematous, no erythema today. No fluctuance or trismus. Patient allowed minimal palpation of the parotid gland on the right. There was no obvious purulence discharge noted. Oropharynx: Clear. Mucous membranes moist. Cardiovascular: Regular rate and rhythm. No murmurs, gallops, or rubs. Respiratory: Clear to auscultation bilaterally. No wheezes or crackles. Abdomen: Bowel sounds present. Soft, nondistended, nontender. Extremities: No pedal edema. Const: Vital Signs, click to edit/add: Vital Signs - 24 hr 01/09/24 15:07 01/09/24 16:03 01/09/24 18:20 Temperature 100 F H Pulse Rate Pulse Rate [Pulse Oximeter] 100 Respiratory Rate 18 Blood Pressure [Ri ght Arm] 179/92 H Blood Pressure [Ri ght Upper Arm] 189/87 H 172/90 H Pulse Oximetry 96 Oxygen Delivery Me thod Room Air 01/09/24 18:20 01/09/24 19:00 01/09/24 22:32 Temperature 101.2 F H Pulse Rate Pulse Rate [Pulse Oximeter] 95 95 Respiratory Rate 18 18 18 Blood Pressure [Ri ght Arm] 133/92 H Blood Pressure [Ri ght Upper Arm] Pulse Oximetry 96 96 Oxygen Delivery Me thod Room Air Room Air 01/09/24 22:32 01/09/24 22:32 01/09/24 23:30 Temperature 103.9 F H 100.9 F H Pulse Rate Pulse Rate [Pulse Oximeter] 95 Respiratory Rate 18 18 Blood Pressure [Ri ght Arm] 138/73 Blood Pressure [Ri ght Upper Arm] Pulse Oximetry 92 92 Oxygen Delivery Me thod Room Air Room Air 01/10/24 03:00 01/10/24 04:34 01/10/24 04:48 Temperature 99.3 F 99.9 F H Pulse Rate 87 Pulse Rate [Pulse Oximeter] 85 Respiratory Rate 18 Blood Pressure [Ri ght Arm] 146/73 H Blood Pressure [Ri ght Upper Arm] Pulse Oximetry 97 Oxygen Delivery Me thod Room Air 01/10/24 07:30 01/10/24 10:25 01/10/24 10:28 Temperature 99.4 F Pulse Rate Pulse Rate [Pulse Oximeter] 91 91 Respiratory Rate 18 18 18 Blood Pressure [Ri ght Arm] 152/77 H Blood Pressure [Ri ght Upper Arm] Pulse Oximetry 97 97 Oxygen Delivery Me thod Room Air Room Air 01/10/24 11:19 01/10/24 11:48 Temperature 99.1 F Pulse Rate 90 Pulse Rate [Pulse Oximeter] 93 Respiratory Rate 18 Blood Pressure [Ri ght Arm] 161/81 H Blood Pressure [Ri ght Upper Arm] Pulse Oximetry 96 Oxygen Delivery Me thod Room Air Labs Labs: Laboratory Results - last 24 hr 01/09/24 01/09/24 01/09/24 13:10 16:34 18:23 WBC RBC Hgb Hct MCV MCH MCHC RDW Coeff of Mery Plt Count Neut % (Auto) Lymph % (Auto) [place] % (Auto) Eos % (Auto) Baso % (Auto) Neut # (Auto) Lymph # (Auto) [place] # (Auto) Eos # (Auto) Baso # (Auto) Abs Immat Gran (auto) Imm/Tot Granulo (auto) Sodium Potassium Chloride Carbon Dioxide Anion Gap BUN Creatinine Estimated Creat Clear Estimated GFR Glucose Calcium C-Reactive Protein CSF Volume 8.0 H CSF Appearance Clear CSF Color Colorless CSF WBC 0 CSF RBC 2 CSF Mononuclear Cells 0 CSF Polynuclear WBCs 0 CSF Glucose 65 CSF Total Protein 46 H Lab Acknowledgement Test Added Blood Type O Positive Antibody Screen NEGATIVE 01/10/24 05:55 WBC 24.81 H RBC 3.67 L Hgb 12.0 Hct 36.8 MCV 100 MCH 33 MCHC 33 RDW Coeff of Mery 14.8 Plt Count 237 Neut % (Auto) 89.0 H Lymph % (Auto) 3.1 L [place] % (Auto) 7.1 Eos % (Auto) 0.0 Baso % (Auto) 0.1 Neut # (Auto) 22.10 H Lymph # (Auto) 0.80 L [place] # (Auto) 1.80 H Eos # (Auto) 0.00 Baso # (Auto) 0.00 Abs Immat Gran (auto) 0.20 Imm/Tot Granulo (auto) 0.7 Sodium 131 L Potassium 3.2 L Chloride 101 Carbon Dioxide 23 Anion Gap 7 BUN 13 Creatinine 0.6 Estimated Creat Clear 45.76 Estimated GFR 95 Glucose 133 H Calcium 8.4 C-Reactive Protein 16.6 H CSF Volume CSF Appearance CSF Color CSF WBC CSF RBC CSF Mononuclear Cells CSF Polynuclear WBCs CSF Glucose CSF Total Protein Lab Acknowledgement Blood Type Antibody Screen
--- NOTE | 2024-01-10 15:44 | PC.NURSE ---
End of Shift: patient pleasant and cooperative. VSS, slight low grade fever this shift, 99.4 this morning, and then dropped to 99.1. Patient reports pain in her right cheek this shift managed with aqua-k pad. Clear liquid diet. 1-2A with gait belt.
[2024-01-10] MEDS: ACETAMINOPHEN 325 MG TABLET 975 MG PO ×2 (16:26→23:33)
[2024-01-11] VITALS (8 sets, daily range): BP systolic 137–166; BP diastolic 74–101; PULSE 75–91; RESP 17–20; TEMP 36.9–37.6; O2SAT 94–98
[2024-01-11] MEDS: AMPICILLIN/SULBACTAM 1.5 GM in 0.9 % SODIUM CHLORIDE Mini-bag 100 ML IVPB ×4 (01:18→20:33)
--- NOTE | 2024-01-11 06:09 | PC.NURSE ---
Pt alert, oriented and vitally stable. Pt used call light appropriately throughout shift and was continent. Pt moves via SBA but does occasionally have an unsteady gait, though pt states this is baseline. Aqua K to face as tolerated throughout shift. IV patent in both arms. Pt did have a headache rated 4/10, prn Tylenol given and pt stated improvement. Pt appears to be resting throughout shift, call light in reach.
[2024-01-11] MEDS: 0.9 % SODIUM CHLORIDE 1000 ml 1,000 ML 100 ML IV (06:37)
[2024-01-11 07:55] LABS: Basophils Percent Auto 0.2 % (0.0-3.0); Eosinophils Percent Auto 0.3 % (0.0-7.0); Hematocrit 34.5 % (33.0-51.0); Hemoglobin* 11.4 gm/dL (12.0-16.0); Immature Granulocytes Pct Auto 0.2 %; Lymphocytes Percent Auto 3.8 % (20-44); Mean Corpuscular HGB Conc 33 gm/dL (32-36); Mean Corpuscular Hemoglobin 33 pg (26-34); Mean Corpuscular Volume 100 fL (80-100); Monocytes Percent Auto 5.4 % (0.0-11.0); Neutrophils Percent Auto 90.1 % (42.0-72.0); Platelet Count* 230 K/uL (140-440); RDW Coefficient of Variation % 14.9 % (11.5-15.5); Red Blood Count 3.44 m/uL (4.00-5.20); White Blood Count* 22.86 K/uL (4.50-11.00)
[2024-01-11 07:57] LABS: Slide Review Reflex No
[2024-01-11 08:10] LABS: Chloride* 103 mmol/L (96-114); Potassium* 3.9 mmol/L (3.6-5.1); Sodium* 126 mmol/L (135-149)
[2024-01-11 08:13] LABS: Creatinine* 0.5 mg/dL (0.5-1.5); Est. Creatinine Clearance* 45.76; Estimated Glomerular Filt Rate 100 ml/min
[2024-01-11 08:14] LABS: Anion Gap -1 mEq/L (7-15); Blood Urea Nitrogen* 10 mg/dL (7-30); Calcium* 8.2 mg/dL (8.4-10.6); Carbon Dioxide* 24 mmol/L (20-32); Glucose* 96 mg/dL (60-115)
[2024-01-11] MEDS: VANCOMYCIN 1 GM/200 ML 1 GM/200 ML PIGGYBACK IVPB (08:26)
[2024-01-11 08:30] LABS: C Reactive Protein* 17.5 mg/dL (0.5-1.0)
[2024-01-11] MEDS: LEVOTHYROXINE 125 MCG TABLET PO (08:43)
[2024-01-11] MEDS: CALCIUM CARBONATE 500 MG TABLET PO ×2 (08:43→21:23)
[2024-01-11] MEDS: AMLODIPINE 10 MG TABLET 5 MG PO (08:43)
[2024-01-11] MEDS: hydroCHLOROthiazide 12.5 MG CAPSULE PO (08:43)
[2024-01-11] MEDS: CELECOXIB 200 MG CAPSULE PO ×2 (08:43→21:24)
[2024-01-11] MEDS: FOLIC ACID 1 MG TABLET PO (08:43)
[2024-01-11] MEDS: levETIRAcetam 500 MG TABLET PO (08:44)
[2024-01-11] MEDS: MULTIVITAMIN/MINERALS 1 TABLET 1 TAB PO (08:44)
--- NOTE | 2024-01-11 10:07 | P.IMPN_ITS ---
Progress Note: A&P Assessment and plan (1) Parotitis, acute: Problem details: - 01/09/24 transition from Zosyn to Unasyn + Vancomycin - per chart review, has had multiple episodes of this, last hospitalized in July 2023 at [facility], I&D performed at that time (Haemophilis and Parainfluenza on path) - has previously seen ENT as an outpatient to discuss surgical intervention - 01/[address] Henrietta Bullock over the phone who agreed with medical management. He recommended, in addition to IV antibiotics, hot packs several times a day, okay to advance diet as tolerated, milk the parotid gland after every meal as pain will allow. I relayed these recommendations to the patient and her family. Have ordered for hot pack 4 times a day. - 01/10 Clinically much improved. Elevated temperature last evening, not criteria for true fever. Still markedly swollen and tender. Continue IV antibiotics yet today. Begin attempts to express/milk parotid gland today. Continue hot packs. Advance diet to regular. Anticipate probable discharge home tomorrow with oral antibiotics. Status: Acute (2) Sepsis: Problem details: - as evidenced by fever, leukocytosis with PMN predominance, tachycardia - parotitis most likely source - LP performed in ED (prior to facial edema/erythema), results pending, BCx also pending - 01/10 resolved. Status: Resolved (3) Confusion: Problem details: - presumably 2/2 acute illness/fever, doesn't appear post-ictal - monitor closely, anticipate improvement with antibiotic therapy - resolved Status: Resolved (4) Epilepsy: Problem details: - first seizure 2011, last seizure 2021 - follows with Dr. Lam of Neurology, on Keppra (dose recently decreased from 750 -->500mg per chart review) - Last MRI 2022, results below: IMPRESSION: 1. No evidence of acute ischemic infarction intracranial hemorrhage or mass. 2. Supratentorial cerebral white matter signal changes are nonspecific but consistent with chronic small vessel ischemic disease less likely chronic demyel ination. 3. Few opacified left mastoid air cells. Status: Chronic (5) Essential hypertension: Problem details: - continue home HCTZ and Amlodipine during stay - holding Lisinopril given CT contrast administration x2 on 01/08 and new renal findings on imaging Status: Chronic (6) Rheumatoid arthritis: Problem details: - on Enbrel and Methotrexate as an outpatient (holding these on admission) - Insurance Claims Examiner is Dr. Debbie Louis in [place], [facility], ph# [phone] Status: Chronic (7) Renal atrophy, right: Problem details: - incidental finding on CT 01/09/24, in addition to likely high grade narrowing of the renal artery - normal renal function - outpatient f/u for this Status: Acute (8) Lung nodule seen on imaging study: Problem details: - 4mm, L apical - seen on CT of neck - outpatient f/u Status: Acute (9) Asymptomatic bacteriuria: Problem details: - E coli isolated from urine culture obtained 01/09/24, pansensitive - she has not had any urinary symptoms - she is currently on Unasyn and vancomycin, day 3, for acute parotiditis Status: Acute Subjective Time Seen by Provider: 07:40 Date Seen: 01/11/24 Interval history: Brenda is feeling much better today. She is much more alert. Her came in later and I went back to talk with them both. He also noticed that she is back to her baseline. She is still having a lot of pain and swelling on her right face/neck. She has been doing hot packs, but has not yet tried expressing her parotid gland. Exam Narrative: Exam Narrative: General: No acute distress. Awake, alert, oriented x3. No pallor. No jaundice. Right face and jaw are edematous, no erythema today. No fluctuance or trismus. Patient allowed palpation of the parotid gland on the right. There was no obvious purulence discharge noted. Oropharynx: Clear. Mucous membranes moist. Cardiovascular: Regular rate and rhythm. Respiratory: Clear to auscultation bilaterally. No wheezes or crackles. Abdomen: Bowel sounds present. Soft, nondistended, nontender. Extremities: No pedal edema. Const: Vital Signs, click to edit/add: Vital Signs - 24 hr 01/10/24 10:25 01/10/24 10:28 01/10/24 11:19 Temperature Pulse Rate 90 Pulse Rate [Pulse Oximeter] 91 Respiratory Rate 18 18 Blood Pressure [Le ft Arm] Blood Pressure [Ri ght Arm] Pulse Oximetry 97 Oxygen Delivery Me thod Room Air 01/10/24 11:48 01/10/24 15:00 01/10/24 15:00 Temperature 99.1 F Pulse Rate 89 Pulse Rate [Pulse Oximeter] 93 Respiratory Rate 18 Blood Pressure [Le ft Arm] Blood Pressure [Ri ght Arm] 161/81 H Pulse Oximetry 96 96 Oxygen Delivery Oh thod Room Air Room Air 01/10/24 16:28 01/10/24 19:37 01/10/24 23:00 Temperature 98.7 F 98.3 F 99.2 F Pulse Rate Pulse Rate [Pulse Oximeter] 97 86 86 Respiratory Rate 18 18 18 Blood Pressure [Le ft Arm] Blood Pressure [Ri ght Arm] 153/81 H 145/80 H 144/66 H Pulse Oximetry 97 95 95 Oxygen Delivery Oh thod Room Air Room Air Room Air 01/10/24 23:00 01/10/24 23:00 01/10/24 23:00 Temperature Pulse Rate 87 Pulse Rate [Pulse Oximeter] 86 Respiratory Rate 18 18 Blood Pressure [Le ft Arm] Blood Pressure [Ri ght Arm] Pulse Oximetry [facility] 01/11/24 03:12 01/11/24 07:00 01/11/24 07:30 Temperature 99.4 F Pulse Rate 75 Pulse Rate [Pulse Oximeter] 86 Respiratory Rate 20 20 Blood Pressure [Le ft Arm] Blood Pressure [Ri ght Arm] 166/95 H Pulse Oximetry 95 95 [facility] Air 01/11/24 07:42 01/11/24 07:42 Temperature 98.7 F Pulse Rate Pulse Rate [Pulse Oximeter] 86 77 Respiratory Rate 20 20 Blood Pressure [Le ft Arm] 159/80 H Blood Pressure [Ri ght Arm] Pulse Oximetry 95 [facility] Labs Labs: Laboratory Results - last 24 hr 01/11/24 07:48 WBC 22.86 H RBC 3.44 L Hgb 11.4 L Hct 34.5 MCV 100 MCH 33 MCHC 33 RDW Coeff of Mery 14.9 Plt Count 230 Neut % (Auto) 90.1 H Lymph % (Auto) 3.8 L [place] % (Auto) 5.4 Eos % (Auto) 0.3 Baso % (Auto) 0.2 Neut # (Auto) 20.60 H Lymph # (Auto) 0.90 [place] # (Auto) 1.20 H Eos # (Auto) 0.10 Baso # (Auto) 0.00 Abs Immat Gran (auto) 0.00 Imm/Tot Granulo (auto) 0.2 Sodium 126 L Potassium 3.9 Chloride 103 Carbon Dioxide 24 Anion Gap -1 L BUN 10 Creatinine 0.5 Estimated Creat Clear 45.76 Estimated GFR 100 Glucose 96 Calcium 8.2 L C-Reactive Protein 17.5 H
[2024-01-11] MEDS: ACETAMINOPHEN 325 MG TABLET 975 MG PO (11:13)
--- NOTE | 2024-01-11 17:55 | PC.NURSE ---
Nursing Care Hours: [id number] Pt this shift calm and cooperative, alert and oriented. Pain rated 3/10, treated per eMAR. Pt also using Aqua-k pad intermittently. Swelling noticeably decreased throughout shift. Pt tolerating advancing diet. VSS and on RA. DC'd L arm IV d/t redness and irritation. SB assist with walker. Pt walking the sher with assist.
[2024-01-11] MEDS: MIRTAZAPINE 15 MG TABLET PO (21:24)
[2024-01-11] MEDS: TRAZODONE HCL 50 MG TABLET 100 MG PO (21:27)
[2024-01-12] MEDS: AMPICILLIN/SULBACTAM 1.5 GM in 0.9 % SODIUM CHLORIDE Mini-bag 100 ML IVPB ×2 (01:47→06:30)
[2024-01-12] MEDS: ACETAMINOPHEN 325 MG TABLET 975 MG PO (01:54)
[2024-01-12 02:30] VITALS: BP 154/77; PULSE 73; RESP 18; TEMP 37.5; O2SAT 94
[2024-01-12 06:25] LABS: Basophils Percent Auto 0.4 % (0.0-3.0); Eosinophils Percent Auto 2.1 % (0.0-7.0); Hematocrit 32.2 % (33.0-51.0); Hemoglobin* 10.6 gm/dL (12.0-16.0); Immature Granulocytes Pct Auto 1.1 %; Lymphocytes Percent Auto 10.2 % (20-44); Mean Corpuscular HGB Conc 33 gm/dL (32-36); Mean Corpuscular Hemoglobin 33 pg (26-34); Mean Corpuscular Volume 100 fL (80-100); Monocytes Percent Auto 8.2 % (0.0-11.0); Platelet Count* 244 K/uL (140-440); RDW Coefficient of Variation % 14.8 % (11.5-15.5); Red Blood Count 3.23 m/uL (4.00-5.20); White Blood Count* 12.97 K/uL (4.50-11.00)
[2024-01-12] MEDS: LEVOTHYROXINE 125 MCG TABLET PO (06:29)
[2024-01-12 06:30] LABS: Slide Review Reflex No
[2024-01-12 06:43] LABS: Chloride* 105 mmol/L (96-114); Potassium* 3.6 mmol/L (3.6-5.1); Sodium* 135 mmol/L (135-149)
[2024-01-12 06:46] LABS: Anion Gap 3 mEq/L (7-15); Blood Urea Nitrogen* 11 mg/dL (7-30); Carbon Dioxide* 27 mmol/L (20-32); Creatinine* 0.6 mg/dL (0.5-1.5); Est. Creatinine Clearance* 45.76; Estimated Glomerular Filt Rate 95 ml/min
[2024-01-12 06:47] LABS: Calcium* 8.2 mg/dL (8.4-10.6); Glucose* 87 mg/dL (60-115)
[2024-01-12 06:49] LABS: C Reactive Protein* 8.4 mg/dL (0.5-1.0)
--- NOTE | 2024-01-12 06:52 | PC.NURSE ---
Shift note ([id number]): Patient pleasant, alert and oriented. Ambulated independently in room with rolling walker. Given PRN Tylenol x1 for right side face pain.?
[2024-01-12] MEDS: VANCOMYCIN 1 GM/200 ML 1 GM/200 ML PIGGYBACK IVPB (07:35)
[2024-01-12 07:40] VITALS: BP 148/82; PULSE 65; PULSE 72; RESP 18; TEMP 36.9; O2SAT 97
[2024-01-12] MEDS: CELECOXIB 200 MG CAPSULE PO (08:21)
[2024-01-12] MEDS: CALCIUM CARBONATE 500 MG TABLET PO (08:22)
[2024-01-12] MEDS: AMOXICILLIN/CLAVULANATE 875 mg/125 mg TABLET PO (08:22)
[2024-01-12] MEDS: AMLODIPINE 10 MG TABLET 5 MG PO (08:22)
[2024-01-12] MEDS: levETIRAcetam 500 MG TABLET PO (08:22)
[2024-01-12] MEDS: MULTIVITAMIN/MINERALS 1 TABLET 1 TAB PO (08:23)
[2024-01-12] MEDS: FOLIC ACID 1 MG TABLET PO (08:23)
[2024-01-12] MEDS: hydroCHLOROthiazide 12.5 MG CAPSULE PO (08:23)
--- NOTE | 2024-01-12 09:26 | P.DS_ITS ---
DS: Providers Provider Time Seen by Provider: 07:55 Date Seen: 01/12/24 Date of admission: 01/09/24 17:40 Primary care physician: Sharon Sims DO Admitting Clinician: Antonietta Sherwood MD Consults: 01/09/24 21:37 Consult to Occupational Therapy [CONS] Routine Comment: Reason(s) for OT Consult:: Evaluate and Treat Any Restrictions?:: No Restrictions Consult to Physical Therapy [CONS] Routine Comment: Reason(s) for PT Consult:: Evaluate and Treat Any Restrictions?:: No Restrictions 01/10/24 14:28 Consult to Senior Software Project Manager [CONS] Routine Comment: Reason for Consult:: Social Service Consult 01/11/24 06:50 Consult to Occupational Therapy [CONS] Routine Comment: Reason(s) for OT Consult:: Difficulty Managing ADLs Any Restrictions?:: Unknown 01/11/24 06:52 Consult to Physical Therapy [CONS] Routine Comment: Reason(s) for PT Consult:: Unstable Gait Any Restrictions?:: Unknown Attending Physician on discharge: Leatha Mari MD Date of Discharge: 01/12/24 DS: Diagnosis Discharge Diagnosis (1) Parotitis, acute: Status: Acute Problem details: - 01/09/24 transition from Zosyn to Unasyn + Vancomycin - per chart review, has had multiple episodes of this, last hospitalized in July 2023 at [facility], I&D performed at that time (Haemophilis and Parainfluenza on path) - has previously seen ENT as an outpatient to discuss surgical intervention - 01/[address] Henrietta Bullock over the phone who agreed with medical management. He recommended, in addition to IV antibiotics, hot packs several times a day, okay to advance diet as tolerated, milk the parotid gland after every meal as pain will allow. I relayed these recommendations to the patient and her family. Have ordered for hot pack 4 times a day. - 01/10 Clinically much improved. Elevated temperature last evening, not criteria for true fever. Still markedly swollen and tender. Continue IV antibiotics yet today. Begin attempts to express/milk parotid gland today. Continue hot packs. Advance diet to regular. Anticipate probable discharge home tomorrow with oral antibiotics. - 01/11 back to baseline mental status, white count improving, pain is improving, able to tolerate general diet, transition to oral antibiotics and discharge home today. (2) Asymptomatic bacteriuria: Status: Acute Problem details: - E coli isolated from urine culture obtained 01/09/24, pansensitive - she has not had any urinary symptoms; she is on antibiotics for acute parotitis (3) Lung nodule seen on imaging study: Status: Acute Problem details: - 4mm, L apical - seen on CT of neck - outpatient f/u (4) Renal atrophy, right: Status: Acute Problem details: - incidental finding on CT 01/09/24, in addition to likely high grade narrowing of the renal artery - normal renal function - outpatient f/u for this (5) Confusion: Status: Resolved Problem details: - presumably 2/2 acute illness/fever, doesn't appear post-ictal - monitor closely, anticipate improvement with antibiotic therapy - resolved (6) Sepsis: Status: Resolved Problem details: - as evidenced by fever, leukocytosis with PMN predominance, tachycardia - parotitis most likely source - LP performed in ED (prior to facial edema/erythema), results pending, BCx also pending - 01/10 resolved. (7) Essential hypertension: Status: Chronic Problem details: - continue home HCTZ and Amlodipine during stay - holding Lisinopril given CT contrast administration x2 on 01/08 and new renal findings on imaging (8) Epilepsy: Status: Chronic Problem details: - first seizure 2011, last seizure 2021 - follows with Dr. Lam of Neurology, on Keppra (dose recently decreased from 750 -->500mg per chart review) - Last MRI 2022, results below: IMPRESSION: 1. No evidence of acute ischemic infarction intracranial hemorrhage or mass. 2. Supratentorial cerebral white matter signal changes are nonspecific but consistent with chronic small vessel ischemic disease less likely chronic demyelination. 3. Few opacified left mastoid air cells. (9) Rheumatoid arthritis: Status: Chronic Problem details: - on Enbrel and Methotrexate as an outpatient (holding these on admission) - Pharmacy Service Associate is Dr. Debbie Louis in [place], [facility], ph# [phone] DS: Summary Hospital Course Hospital Course: Note to provider: Patient needs follow-up of 4 mm lung nodule in the left apical lung seen on CT neck and likely high-grade narrowing of the renal artery as an incidental finding on CT abdomen 01/09/2024. I have stopped lisinopril until this can be further investigated. Per H&P: Brenda Malcolm is a 73 year old female who presented to the ER for weakness and fever. Sherry assists with history. Last night, patient went to bed in normal state of health. Fell thrice overnight (presumably getting up to use the bathroom), no concern for head injury or LOC. She did bump her R elbow during a fall, has a small abrasion. Had one dark stool overnight. Notes mild diffuse abdominal discomfort. No back pain or dysuria. Intermittent R jaw pain during the day. No recent dental visits or infections. This morning, still weak with a fever (T >101), presented to who recommended ER. ER Course and Findings: - temperature of 99.7, HR 112, WBC 15 with PMN predominance - no acute abnormalities on EKG - CT C/A/P: lower lobe fibrotic changes with GGOs (worsening pneumonitis and/or developing infiltrates), also noted to have R sided renal atrophy with concern for high grade atherosclerotic narrowing of R renal artery - UA reassuring - HGb 13, normal MCV, BUN 11, Cr 0.6, CRP 13, procalcitonin wnl - LP performed by BENITO - Sandy x1 obtained, treated with Zosyn - seemed confused, mildly restless. No localized neurological findings Upon arrival to the floor, patient's temperature was 100; on visual exam she had R sided facial/jaw edema. notes this was not present in the ER. CT neck ordered urgently, results + for R parotitis. Patient was started on Unasyn and vancomycin for acute parotitis. Mentation, pain, and white count improved over the next few days. She was able to advance her diet, continues to use hot packs, and has tried milking the parotid gland. She is in improved in stable condition in discharging home today. Time Spent with Patient Time attestation: Total time spent providing and/or coordinating discharge services: 35 minutes, 20 minutes spent in discussion with patient and later patient and daughter. Exam Narrative: Exam Narrative: General: No acute distress. Awake, alert, oriented x3. No pallor. No jaundice. Right face and jaw are less edematous, no erythema, mild tenderness to palpation. No fluctuance or trismus. Oropharynx: Clear. Mucous membranes moist. Cardiovascular: Regular rate and rhythm. Respiratory: Clear to auscultation bilaterally. No wheezes or crackles. Abdomen: Bowel sounds present. Soft, nondistended, nontender. Extremities: No pedal edema. Const: Vital Signs, click to edit/add: Vital Signs - 24 hr 01/11/24 11:00 01/11/24 15:00 01/11/24 15:00 Temperature 99.3 F 98.5 F Pulse Rate Pulse Rate [Pulse Oximeter] 83 83 Respiratory Rate 18 18 Blood Pressure [Le ft Arm] 151/101 H 137/84 Pulse Oximetry 98 97 Oxygen Delivery Me thod Room Air Room Air Room Air 01/11/24 15:00 01/11/24 19:00 01/11/24 23:00 Temperature 99.6 F Pulse Rate 86 91 Pulse Rate [Pulse Oximeter] 84 Respiratory Rate 18 Blood Pressure [Le ft Arm] 139/74 Pulse Oximetry 98 Oxygen Delivery Me thod Room Air 01/11/24 23:00 01/11/24 23:00 01/12/24 02:30 Temperature 99.4 F 99.5 F Pulse Rate Pulse Rate [Pulse Oximeter] 82 73 Respiratory Rate 17 18 Blood Pressure [Le ft Arm] 154/82 H 154/77 H Pulse Oximetry 95 94 94 Oxygen Delivery Me thod Room Air Room Air Room Air 01/12/24 07:40 01/12/24 07:40 01/12/24 07:40 Temperature Pulse Rate 65 Pulse Rate [Pulse Oximeter] 65 Respiratory Rate 18 Blood Pressure [Le ft Arm] Pulse Oximetry 97 Oxygen Delivery Me thod Room Air 01/12/24 07:40 Temperature 98.4 F Pulse Rate Pulse Rate [Pulse Oximeter] 72 Respiratory Rate 18 Blood Pressure [Le ft Arm] 148/82 H Pulse Oximetry 97 Oxygen Delivery Me thod Room Air DS: Data Data Completed and Pending Completed studies during hospitalization: 01/09/2024 EKG: Sinus rhythm with first-degree AV block, 100 beats per minute. Septal infarct, age undetermined. Ordering Physician: Clarita Romero M.D. Date of Service: 01/09/24 Procedure(s): XR chest 2V Accession Number(s): [id number] cc: Clarita Romero M.D.; Sharon Sims D.O.~ For Patients: As a result of the 21st Century Cures Act, medical imaging exams and procedure reports are released immediately into your electronic medical record. You may view this report before your referring provider. If you have questions, please contact your health care provider. INDICATION: : Fever COMPARISON: Chest radiograph on September 16, [address] chest/abdomen/pelvis on May 08, 2020 TECHNIQUE: Two view(s) of the chest FINDINGS: The cardiomediastinal silhouette and pulmonary vasculature are unremarkable. There is no focal airspace consolidation, pleural effusion, or pneumothorax. Interstitial markings, particularly at the bilateral lung bases, consistent with pulmonary fibrosis. No displaced fractures. Calcified intra-articular loose bodies of the left shoulder and degenerative changes of the bilateral shoulders and spine. IMPRESSION: No acute cardiopulmonary process. Dictated by Blayne Daniel MD @ 01/09/2024 2:14:50 PM (Electronically Signed) Ordering Physician: Clarita Romero M.D. Date of Service: 01/09/24 Procedure(s): CT chest abdomen pelv w con Accession Number(s): [id number] cc: Clarita Romero M.D.; Sharon Sims D.O.~ For Patients: As a result of the Cures Act, medical imaging exams and procedure reports are released immediately into your electronic medical record. You may view this report before your referring provider. If you have questions, please contact your health care provider. Indication: Fever Technique: Volumetric multidetector CT images of the chest, abdomen, and pelvis were obtained after the administration of intravenous contrast. 89 cc Isovue 370 low osmolar intravenous contrast Comparison: CT chest, abdomen and pelvis May 08, 2020 FINDINGS: CHEST The thoracic inlet is unremarkable. The thyroid gland is within normal limits. The thoracic aorta is nonaneurysmal. There is no filling defect to suggest pulmonary embolus. There is no mediastinal, hilar, or axillary adenopathy. There is [id number] basilar atelectasis and parenchymal scar with moderate pulmonary fibrosis of the peripheral lower lobes. There is questionable minimal airspace opacity within the right superior segment of the lower lobe and inferior segments of the right upper lobe commensurate with likely dense consolidations. The thoracic osseus structures are intact without fracture, lytic, or blastic lesion. The thoracic vertebral body heights are grossly maintained with minimal endplate Schmorl`s defects. There is no significant spondylolisthesis or displaced fracture. ABDOMEN AND PELVIS Minimal cystic change of the right liver is again seen. Otherwise the liver is grossly within normal limits. The spleen is normal in attenuation and size. The gallbladder is unremarkable without radiopaque calculus. There is no intrahepatic or common ductal dilatation. The stomach and duodenum are grossly unremarkable. The pancreas is normal in enhancement without significant atrophy. The adrenal glands are unremarkable without evidence of adenoma. There is interval atrophy of the right kidney with compensatory hypertrophy of the left kidney from remote comparison exam. No evidence of obvious obstructive calculus. There is demonstration of likely severe atherosclerotic narrowing at the origin of the right renal artery. Otherwise, corticomedullary differentiation is somewhat limited due to respiratory motion artifact. Subtle streaky defects within the inferior left kidney may be difficult to exclude. Moderate stool seen throughout the colon with fluid-filled central small bowel. The appendix is unremarkable without significant inflammatory change. The abdominal aorta is nonaneurysmal with no significant atherosclerotic disease. The remaining solid pelvic viscera are otherwise grossly unremarkable. There is no pathologically enlarged epigastric, mesenteric, retroperitoneal, or pelvic sidewall lymph node. The anterior abdominal wall is grossly intact without significant hernias. There is no free air or free fluid. The visualized osseous structures are grossly intact without evidence of displaced fracture, lytic or blastic lesion. The lumbar vertebral body heights are grossly maintained with minimal endplate Schmorl`s defects. There is moderate facet arthrosis. No evidence of lytic or blastic lesion. Impression: 1. Moderate pulmonary fibrotic changes of the peripheral lower lobes with increasing superimposed interstitial and ground-glass opacities which may representing worsening pneumonitis changes and/or developing superimposed infiltrates. No other dense consolidation is identified. 2. Interval development of right sided renal atrophy with likely high-grade atherosclerotic narrowing of the right renal artery with focal atherosclerotic plaque. There is compensatory hypertrophic changes of the left kidney. Somewhat limited evaluation of the kidneys with questionable corticomedullary streaks in the inferior left kidney which could represent developing pyelonephritis changes. Correlate with urinalysis and history of clinical symptoms. 3. No other acute intra-abdominal abnormality is appreciated. Please note that all CT scans at this facility use dose modulation, iterative reconstruction, and/or weight-based dosing when appropriate to reduce radiation dose to as low as reasonably achievable. Dictated by Jerrod Grigsby MD @ 01/09/2024 3:13:27 PM (Electronically Signed) Ordering Physician: Antonietta Sherwood M.D. Date of Service: 01/09/24 Procedure(s): CT soft tissue neck w con Accession Number(s): [id number] cc: Antonietta Sherwood M.D.; Sharon Sims D.O.~ For Patients: As a result of the Cures Act, medical imaging exams and procedure reports are released immediately into your electronic medical record. You may view this report before your referring provider. If you have questions, please contact your health care provider. INDICATION: Erythema and edema right mandible. TECHNIQUE: CT soft tissue of the neck was acquired with 99 cc Isovue 370 IV contrast. COMPARISON: None. FINDINGS: Exam is limited by patient motion. Skull base: Unremarkable. Pharynx/Larynx/Trachea: Epiglottis is normal. Airway is patent. Adjacent soft tissues are normal. Salivary glands: Right parotid gland is enlarged and edematous with surrounding soft tissue edema/inflammation. Remainder of the salivary glands are unremarkable. Thyroid gland: Unremarkable. No significant nodules. Lymph nodes: No lymphadenopathy. Vessels: Unremarkable for age. Bones: Unremarkable for age. Misc: No inflammation, mass or fluid collection. Lung apices: A 4 mm nodule is in the anterior left lung apex series 3, image 86. IMPRESSION: 1. Acute right-sided parotitis. 2. Indeterminate 4 mm left apical lung nodule. Please note that all CT scans at this facility use dose modulation, iterative reconstruction, and/or weight-based dosing when appropriate to reduce radiation dose to as low as reasonably achievable. Dictated by Chino Gorman MD @ 01/09/2024 6:18:19 PM (Electronically Signed) Labs on day of discharge: Labs from last 24 hours 01/12/24 06:20 WBC 12.97 H RBC 3.23 L Hgb 10.6 L Hct 32.2 L MCV 100 MCH 33 MCHC 33 RDW Coeff of Mery 14.8 Plt Count 244 Neut % (Auto) 78.0 H Lymph % (Auto) 10.2 L Whitfield % (Auto) 8.2 Eos % (Auto) 2.1 Baso % (Auto) 0.4 Neut # (Auto) 10.10 H Lymph # (Auto) 1.30 Whitfield # (Auto) 1.10 H Eos # (Auto) 0.30 Baso # (Auto) 0.10 Abs Immat Gran (auto) 0.10 Imm/Tot Granulo (auto) 1.1 Sodium 135 Potassium 3.6 Chloride 105 Carbon Dioxide 27 Anion Gap 3 L BUN 11 Creatinine 0.6 Estimated Creat Clear 45.76 Estimated GFR 95 Glucose 87 Calcium 8.2 L C-Reactive Protein 8.4 H Preliminary micro results at discharge 01/09/24 16:34 Body Fluid Culture - Preliminary Cerebrospinal Fluid NO GROWTH AFTER 72 HOURS 01/09/24 16:18 Blood Culture - Preliminary Blood NO GROWTH AFTER 48 HOURS Discharge Plan Discharge Disposition: Home, Self-Care Date of Admission: 01/09/24 17:40 Attending Provider on Discharge: Leatha Mari Discharge Medications: New amoxicillin-pot clavulanate 875-125 mg Tablet 1 tab PO BIDWM 10 Days Qty: 20 0RF Continued folic acid 400 mcg tablet 1.2 mg PO QDAY celecoxib 200 mg capsule 200 mg PO BID calcium carbonate [Calcium 600] 600 mg calcium (1,500 mg) tablet 600 mg PO BID multivitamin Tablet 1 tab PO DAILY levothyroxine 125 mcg capsule 125 mcg PO DAILY trazodone 50 mg tablet 100 - 150 mg PO HS PRN Enbrel 50 mg/mL (1 mL) syringe 50 mg subcut QWEEK levetiracetam 500 mg tablet extended release 24 hr 500 mg PO DAILY hydrochlorothiazide 12.5 mg tablet 12.5 mg PO DAILY mirtazapine 15 mg tablet 15 mg PO HS mupirocin 2 % ointment 1 applic topical BID-TID Alavert D-12 Allergy-Sinus 5-120 mg tablet extended release 12 hr 1 tab PO BID PRN Held methotrexate sodium (PF) 25 mg/mL solution 27.5 mg subcut Q7D Hold Instructions: Resume on 01/23/24. Discontinued lisinopril 40 mg tablet 40 mg PO DAILY Discharge Orders: Discharge Order (Routine); Ordered 01/12/24 Ordered By: Leatha Mari Additional Instructions: Hold methotrexate until you of finished Augmentin. Warm packs to right face 4x per day. Milk parotid glands after each meal. Activity Level: No Restrictions Discharge Diet: Regular Follow Up Appointments: Sharon Sims DO [Primary Care Provider] - (1 week) Forms: [facility] Info Instructions
--- NOTE | 2024-01-12 13:15 | PC.NURSE ---
PATIENT AFEBRILE. DENIES PAIN OR N/V. TOLERATING REGULAR DIET. UP WITH SBA AND WALKER. SHOWERED WITH OT. SALINE LOCK DC'D. REVIEWED DC INSTRUCTIONS WITH PATIENT AND HER AND ANSWERED QUESTIONS. PATIENT DC'D HOME WITH SPOUSE.
== END 2024-01-12 12:20 | disposition home or self-care (01) | DRG 872 ==
LOC: ED 13:51 → MEDSURG 16:52
PROVIDERS: Family Medicine; Admitting Provider Family Medicine; Emergency Provider Emergency Medicine; PCP Family Medicine; Visit Provider Family Medicine
DX: A41.9 Sepsis, unspecified organism (principal); K11.22 Acute recurrent sialoadenitis; R82.71 Bacteriuria; R41.0 Disorientation, unspecified; G40.909 Epilepsy, unspecified, not intractable, without status epilepticus; S50.01XA Contusion of right elbow, initial encounter; W18.30XA Fall on same level, unspecified, initial encounter; M06.9 Rheumatoid arthritis, unspecified; Z79.631 Long term (current) use of antimetabolite agent; I12.9 Hypertensive chronic kidney disease with stage 1 through stage 4 chronic kidney disease, or unspecified chronic kidney disease; N18.9 Chronic kidney disease, unspecified; R91.1 Solitary pulmonary nodule; E03.9 Hypothyroidism, unspecified
CPT/HCPCS: 00635; 36415; 62270; 70491; 71046; 71260; 74177; 80048; 80076; 81001; 82945; 83605; 84145; 84157; 84443; 84484; 85025; 86140; 86735; 86850; 86900; 86901; 87040; 87070; 87086; 87186; 87631; 89051; 93005; 97110; 97116; 97161; 97165; 97530; 97535; 99100; 99284; 99285; A9153; A9270; J0295; J2543; J3372; J7030; Q9967

== ENCOUNTER 2024-08-04 11:15 | Outpatient (RCR) | payer MEDICARE, BC, SELFPAY | END 2024-10-11 16:42 | disposition home or self-care (01) | PROVIDERS: PCP Family Medicine; Visit Provider Orthopaedic Surgery Foot and Ankle Surgery | DX: M25.572 Pain in left ankle and joints of left foot (principal); M25.571 Pain in right ankle and joints of right foot; Z51.89 Encounter for other specified aftercare | CPT/HCPCS: 97110; 97140; 97161; 97530 ==

== ENCOUNTER 2024-12-05 08:58 | Outpatient (REF) | payer MEDICARE, BC, SELFPAY ==
[2024-12-05 09:30] LABS: Ionized Calcium* 1.40 mmol/L (1.11-1.30)
[2024-12-05 09:32] LABS: Hematocrit* 31.4 % (33.0-51.0); Hemoglobin* 10.6 gm/dL (12.0-16.0); Immature Granulocytes Pct Auto 1.0 %; Mean Corpuscular HGB Conc 34 gm/dL (32-36); Mean Corpuscular Hemoglobin 31 pg (26-34); Mean Corpuscular Volume 93 fL (80-100); RDW Coefficient of Variation % 14.3 % (11.5-15.5); Red Blood Count* 3.39 m/uL (4.00-5.20); White Blood Count* 4.09 K/uL (4.50-11.00)
[2024-12-05 09:38] LABS: Immature Granulocytes Abs Auto 0.00 K/uL (0.00-0.30); Lymphocytes Absolute Auto 0.90 K/uL (0.90-2.90); Slide Review Reflex No
[2024-12-05 09:47] LABS: Chloride* 103 mmol/L (96-114); Potassium* 3.8 mmol/L (3.6-5.1); Sodium* 137 mmol/L (135-149)
[2024-12-05 09:50] LABS: Blood Urea Nitrogen* 11 mg/dL (7-30); Carbon Dioxide* 30 mmol/L (20-32); Creatinine* 0.8 mg/dL (0.5-1.5); Estimated Glomerular Filt Rate 78 ml/min
[2024-12-05 09:51] LABS: Calcium* 10.8 mg/dL (8.4-10.6); Glucose* 97 mg/dL (60-115)
[2024-12-05 09:55] LABS: Anion Gap 4 mEq/L (7-15)
[2024-12-05 10:09] LABS: Vitamin D 25 Hydroxy* 91 ng/mL (30-80)
--- OUTSIDE RECORDS SUMMARY | 2024-12-06 00:16 | XMS_ITS | Clinical Summary ---
Author Organization [facility] Address [address] [place] [id number] Care Team Providers Care Director Professional Services Name Role Phone Hunter Harrison MD Unavailable Unavail able Cassie Howell MD Unavailable [phone] Nola Navarro Unavailable [phone] Sharon Sims DO Primary Care Provider [phone] Cipriano Howell MD Unavailable [phone] Allergies Active Allergy Reactions Criticality Noted Date Comments Erythromycin GI Upset 09/28/2006 Kiwi Throat Swelling/Closing High 05/08/2020 Nickel Rash High 09/09/2011 Medications FOLIC ACID 800 MCG TAB take 1 tablet (0.8 mg) by oral route once daily 0 09/29/19 07 Active CLARITIN-D 12 HOUR 5 MG-120 MG TAB take 1 tablet by oral route every 12 hours PRN 180 1 11/10/19 07 Active celecoxib (CELEBREX) 200 mg capsule Take one daily by mouth. If in pain may take twice daily. 0 07/13/19 13 Active psyllium (MetamuciL) 0.4 gram capsule Take 1 Capsule by mouth once daily. 0 08/06/19 23 Active etanercept (EnbreL) 50 mg/mL (1 mL) syringe Inject 50 mg subcutaneous every Thursday. Active methotrexate 25 mg/mL injection Inject 1.1 mL subcutaneous every Thursday. Active mupirocin 2% ointmentIndication s:Skin infection Apply topically to affected area(s) three times daily. Apply twice daily to affected areas 22 g 1 01/05/20 24 Active wheelchairIndicati ons:Closed nondisplaced fracture of body of right talus, initial encounter Wheelchair: Standard with leg rests: (Swing away Length of need: 6 months 1 Each 01/20/20 24 Active levETIRAcetam (KEPPRA XR) 500 mg Tb24 Extended-Release tabletIndications: Seizure disorder (HC) Take 1 Tablet (500 mg) by mouth at bedtime. 90 Tablet 3 09/14/19 25 026 Active traZODone (DESYREL) 50 mg tabletIndications: Insomnia, idiopathic Take 2-3 tablets at bedtime for sleep 270 Tablet 3 09/17/19 25 Active losartan (COZAAR) 100 mg tabletIndications: Primary hypertension Take 1 Tablet (100 mg) by mouth once daily. 90 Tablet 3 09/17/19 25 Active gabapentin (NEURONTIN) 300 mg capsuleIndications :Restless leg syndrome Take 1 Capsule (300 mg) by mouth at bedtime. 30 Capsule 3 11/26/19 25 Active ferrous gluconate 324 mg (37 mg iron) tabletIndications: Normocytic anemia Take 1 Tablet by mouth once daily with a meal. 100 Tablet 1 12/02/19 25 Active levothyroxine (SYNTHROID) 112 mcg tabletIndications: Hypothyroidism, unspecified type Take 1 Tablet (112 mcg) by mouth before breakfast. 90 Tablet 12/03/19 25 Active carvediloL (COREG) 6.25 mg tabletIndications: Essential hypertension Take 1 Tablet (6.25 mg) by mouth two times daily with meals. 180 Tablet 3 12/06/19 25 Active calcium carbonate (OS-LUCIE 500) 500 mg calcium (1,250 mg) tablet Take 500 mg by mouth two times daily with meals. 025 Discontin ued(*Med complete/ Regimen complete/ Level of care change) multivitamins-mine rals-lutein (Multivitamin 50 Plus) tab tablet Take 1 Tablet by mouth once daily. 025 Discontin ued(*Med complete/ Regimen complete/ Level of care change) oxyCODONE (ROXICODONE) 5 mg immediate release tabletIndications: Chronic pain in left foot,Insufficiency fracture (HC),Chronic foot pain, right Take 1 Tablet (5 mg) by mouth once daily if needed (Severe pain). 20 Tablet 05/11/19 25 025 Discontin ued(*Med complete/ Regimen complete/ Level of care change) ondansetron 4 mg disintegrating tabletIndications: PONV (postoperative nausea and vomiting) Place 1 Tablet (4 mg) on the tongue every 8 hours if needed for Nausea/Vomiting . 8 Tablet 1 06/30/19 25 025 Discontin ued(*Med complete/ Regimen complete/ Level of care change) traMADoL 50 mg tabletIndications: Postoperative pain Take 1 Tablet (50 mg) by mouth every 6 hours if needed for Pain. 15 Tablet 06/29/19 25 025 Discontin ued(*Med complete/ Regimen complete/ Level of care change) gabapentin 300 mg capsuleIndications :Restless leg syndrome Take 1 Capsule (300 mg) by mouth at bedtime. 30 Capsule 3 07/19/19 25 025 Discontin ued(Reord er (E-cancel not sent)) hydroCHLOROthiazid e 25 mg tabletIndications: Primary hypertension Take 1 Tablet (25 mg) by mouth once daily. 90 Tablet 3 09/17/19 25 025 Discontin ued(*Med complete/ Regimen complete/ Level of care change) levothyroxine (SYNTHROID) 125 mcg tabletIndications: Hypothyroidism, unspecified type Take 1 Tablet (125 mcg) by mouth once daily. 90 Tablet 3 09/17/19 25 025 Discontin ued(*Medi cation adjustmen t) Active Problems Problem Noted Date Diagnosed Date Age-related osteoporosis wit h current pathological fracture with delayed healing 02/15/2024 Renal artery atherosclerosis 01/20/2024 Depression, major, single episode, moderate 11/02 Parotid abscess 07/24/2023 Hemochromatosis 07/21/2023 Overview (08/10/2023): Follows with Dr. Howell [facility]. Elevated ferritin and iron overload. Negative for C282Y and H63D. Recommend CBC, ferritin, iron sat Q3 months with phlebotomy to target ferritin of 50-100 (per note 03/10/2023). Neck mass, suspected abscess 07/21/2023 Interstitial lung disease 06/16/2021 Overview (08/10/2023): Pulmonary consult 11/2020 HTN (hypertension) 03/21/2020 Lung nodules 03/05/2020 Overview (03/05/2020): Incidental finding [address] chest 2020 stable lower ling nodules, L upper lobe nodule 6mm - consider Follow up 1 year Insomnia 01/09/2015 Seizure disorder 06/13/2013 healthcare maintenance 09/21/2007 Overview (01/05/2014): Last Pap: 01/05/2014 Last Mammo: 2013 Last Bone Density: 01/16/2011 Colonoscopy: 11/04/2006 - follow up in 10 years No LMP recorded. Patient is postmenopausal. Mixed hearing loss, bilateral 11/09/2006 Unspecified hypothyroidism 09/28/2006 Rheumatoid arthritis(714.0) 09/28/2006 Overview (08/10/2023): Dr Louis On Enbrel and MTX (+ Folic acid) Resolved Problems Problem Noted Date Diagnosed Date Resolved Date Pleural effusion 06/16/2021 07/21/2023 COVID-19 virus infection 03/03/2021 Overview (03/03/2021): Jan 2021 Elevated ferritin level 03/21/2020 05/2 03/2023 Overview (09/21/2020): Sees Dr Howell HEREDITARY HEMOCHROMATOSIS The patient does not carry the C282Y or H63D mutations on either copy of the HFE gene. Encounters Date Type Department Care Team Description 12/05/2024 2:10 PM CDT Office Visit [facility] [address] [facility] [address] Sharon Sims, DO Follow Up (Elevated Calcium, pt reports continued fatigue, sour stomach, floaters 10-15 min) 12/05/2024 Travel 12/02/2024 10:30 AM CDT Ancillary Procedure [facility] [address] [place] [address] Arrived 12/02/[address] [facility] [address] [place] [address] Kalen Argueta MD Results 12/02/2024 Telephone [facility] [address] [facility] [place] [address] Sharon Sims, Follow Up (Confusion ) 12/02/2024 Orders Only [facility] [address] [place] [address] Jordan Lua NP <No scans attached> 12/02/2024 Travel 12/02/[address] [facility] [address] [place] [address] Nadiya Beltran, 1 scan: (1-Ord) 11/30/2024 12/02/[address] [facility] [address] [place] [address] Kalen Argueta MD Abnormal Lab Results (Calcium) 12/01/2024 4:00 PM CDT Orders Only [facility] [address] [place] [address] [place] <No scans attached> 12/01/2024 10:00 AM CDT Ancillary Procedure [facility] [address] [facility] [address] [place] [address] 12/01/[address] [facility] [address] [place] [address] Nadiya Beltran DO Abnormal Lab Results 12/01/[address] [facility] [address] [place] [address] Nadiya Beltran, Results 11/30/2024 4:00 PM CDT Orders Only [facility] [address] [facility] [place] [address] Lab, [place] Lab 11/30/2024 1:30 PM CDT Ancillary Procedure [facility] [address] [place] [address] 11/30/2024 12:50 PM CDT Office Visit [facility] [address] [place] [address] Nadiya Beltran DO Pain (Body aches 3-4 days ) 11/30/2024 Nurse Triage [facility] [address] [place] [address] Sharon Sims DO Confusion (Walked into lab to collect a urine sample from Dr. 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/); Foot Problem; Medication Management (Mirtazapine not working, would like to go back on Trazodone ) 09/15/2024 Travel 09/13/2024 12:20 PM CDT Office Visit [facility] [place] [address] [phone] Claudy Brown DO Consult 09/12/2024 Travel 09/09/2024 Telephone [facility] [address] [place] [address] Higinio Payton, DPM Follow Up from Last 3 Months Immunizations Immunization Administration Dates Next Due AMB Influenza, IIV4 PF (=>6 mos Flulaval,Fluzone Fluarix)(Flu Clinic Only) 11/15/2019,12/08/2018 COVID-19 vaccine (Moderna 100mcg/0.5mL) PF, MDV 05/29/2021,10/25/2020,05/24/2020,04/26 INFLUENZA, IIV3 PF (AGE >= 6 MO) 11/20/2008 Influenza A (H1N1), Inactiva iggy (Age >=3 Years) 02/06/2009 Influenza Virus, Unspecified 12/24/2020, 12/09/2017,12/17/2016,12/10,12/19/2015,12/04/2014,12/07/2013 ,12/07/2012,11/11/2011,12/02/2010,11/01,02/06/2009,11/20/2008 Influenza, High-dose Inactivated 11/17/2023 Influenza, High-dose Quadriv alent Inactivated 12/01/2022,12/26/2021 Influenza, IIV3 (Age >=3 years) 12/19/2015,11/10 Influenza, Inactivated AIIV4 (Age 65+ Years) Preserv Free 12/24/2020 Influenza, Inactivated IIV3 (Age 65+ Years) Preserv Free 12/17/2016 Influenza, Intradermal Inactivated 12/26/2014 Pneumococcal Poly,23-Valent (Pneumovax) 07/14/2018,09/28/2006,06/12/2000 Pneumococcal conj 13-Valent (Prevnar 13) 05/27/2017 RSV, Recombinant ADJ Reconst ituted (Arexvy 120MCG/0.5mL) 12/31/2022 Td (Age >=7 Years) 02/07/2016 Td, Preservative Free (age >= 7 Years) 6 Tdap 08/14/2005 Typhoid (injectable) 08/14/2005 Yellow Fever 01/31/2008 Zoster (Shingrix-RZV, recombinant) 12/05/2019, Family History Medical History Relation Name Comments Hypertension Father Stroke Father Cancer Mother lung Cancer-breast No Family History Cancer-ovarian No Family History Relation Name Status Comments Father Mother Social History Tobacco Use Types Packs/Day Years Used Date Smoking Tobacco: Former Cigarettes 1 20 0 03/02/1967 - 03/02/1987 Passive Smoke Exposure: Past Smokeless Tobacco: Never Tobacco Cessation:Counseling Given: Not Answered Comments:20 pack year history Alcohol Use Standard Drinks/Week Comments Yes 0 (1 standard drink = 0.6 oz pur e alcohol) 1-2 drinks 3-4 times a week PHQ-2 Answer Date Recorded PHQ-2 TOTAL SCORE 3 09/16/2024 Social Connections Answer Date Recorded Do you often feel lonely or isolated from those around you? 0 09/15/2024 Alcohol Use Answer Date Recorded How often do you have a drink containing alcohol ? 0 11/30/2024 Average Number of Drinks Not on file 025 Frequency of Binge Drinking Not on file 1003/2024 Financial Resource Strain Answer Date R ecorded Difficulty of Paying Living Expenses 3 09/15/2024 Difficulty of Paying Living Expenses Not on file 09/15/2024 Food Insecurity Answer Date Recorded Do you worry your food will run out before you are able to buy more? 1 09/15/2024 Transportation Needs Answer Date Record ed Does lack of transportation keep you from medica l appointments? 1 09/15/2024 Does lack of transportation keep you from work, meetings or getting things that you need? 1 09/15/2024 Housing Stability Answer Date Recorded What is your housing situation today? 1 09/15/2024 Utilities Answer Date Recorded Do you have trouble paying f or utilities (for example, heat, electricity, water, phone)? 1 09/15/2024 Comments No Sex and Gender Information Value Date Recorded Sex Assigned at Not on file Legal Sex Female 5:24 AM ESTHETICIAN/SPA COORDINATOR Gender Identity Not on file Sexual Orientation Not on file Occupation Industry Job Start Date Job End Date Not on file Not on file Not on file Not on file Obstetrics History Para Term AB IAB SAB Ectopic Multiple Livin g Live Births 2 2 2 0 0 0 0 0 2 Date Outcome GA Total Labor Labor/2nd/3rd Weight Sex Type Anes PTL Annabelle A1 A5 Name Clin Term Term Last Filed Vital Signs Vital Sign Reading Time Taken Comments Blood Pressure 153/79 12/05/2024 3:26 PM CDT Pulse 83 12/05/2024 2:20 PM CDT Temperature 36.7 C (98.1 F) 11/30/2024 12:52 PM CDT Respiratory Rate 16 06/29/2024 2:28 PM CDT Oxygen Saturation 99% 12/05/2024 2:20 PM CDT Inhaled Oxygen Concentration - - Weight 59.9 kg (132 lb) 12/05/2024 2:20 PM CDT Height 163.8 cm (5' 4.5) 10/10/2024 11:29 AM CD T Body Mass Index 22.31 10/10/2024 11:29 AM CDT Plan of Treatment Upcoming Encounters Date Type Department Care Team (Late st Contact Info) Description 12/09/2024 10:45 AM CDT Orders Only [facility] [address] [place] [address] [place] 12/21/2024 9:45 AM CDT Office Visit [facility] [address] [place] [address] Sharon Sims, DO [address] [place] [address] 01/02/2025 9:00 AM ESTHETICIAN/SPA COORDINATOR Appointment [facility] [address] [place] [address] 02/14/2025 10:30 AM ESTHETICIAN/SPA COORDINATOR Office Visit [facility] [address] [address] [place] [address] [place] [address] 03/28/2025 10:00 AM ESTHETICIAN/SPA COORDINATOR Office Visit [address] [address] Health Maintenance Due Date Last Done Comments COVID-19 vaccine series (2024- season) 2024 06/09/2024, 11/17/2023, 12/01/2022, Additional history exists Influenza Vaccine (#1) 2024 , 12/24/2020, 12/24/2020, Additional history exists Depression screening for age 12+ 09/16/2025 09/16/2024, 01/06/2024, 01/05/2024, Additional history exists Medicare Wellness for age 65+ 09/17/2025 09/16/2024, 08/10/2023, 06/23/2022, Additional history exists Mammogram for age 45-75 09/29/2025 09/30/19, 08/20/2023, 08/06/2022, Additional history exists BMI (ht and wt on same day) for age 18+ 10/10/2025 10/10/2024, 09/16/2024, 06/23/2024, Additional history exists Tetanus booster 02/06/2026 02/07/2016, 10/2015, 08/14/2005 Lipids for age 45-75 06/26/2027 06/25/2022, 10/05/2019, 07/06/2018, Additional history exists Fecal testing sDNA-FIT (Cologuard) for age 45-75 09/25/2027 09/24/2024, 07/04/2021, 06/26/2021, Additional history exists Pneumococcal series for age 50+ Completed 07/14/2018, 05/27/2017, 09/28/2006, Additional history exists Hepatitis C screening for age 18-79 Completed 12/31/2022, 10/05/2019 RSV vaccine for adults or Completed 12/31/2022 DEXA/DXA scan for age 65+ Completed 2023, 08/05/2018, 01/16/2011, Additional history exists Hepatitis B series for 19+ Aged Out N o longer eligible based on patient's age to complete this topic Procedures Procedure Name Priority Date/Time Associated Diagnosis Comments CT CHEST ABDOMEN PELVIS W MCKENZIE 12/02/2024 11:34 AM CDT Fatigue, unspecified type Weakness Hypercalcemia PERIPHERAL BLD MORPHOLOGY Routine 12/01/2024 4:00 PM CDT Normocytic anemia CBC WITH AUTO DIFFERENTIAL STAT 12/01/2024 4:00 PM CDT Normocytic anemia PTH,INTACT Routine 12/01/2024 4:00 PM CDT Hypercalcemia RETICULOCYTES STAT 12/01/2024 4:00 PM CDT Normocytic anemia CBC WITH AUTO DIFFERENTIAL STAT 12/01/2024 4:00 PM CDT Normocytic anemia MR HEAD BRAIN STROKE WO MR ANGIO HEAD WO NECK WWO STAT 12/01/2024 10:53 AM CDT Balance problem Weakness URINE CULTURE Routine 11/30/2024 2:30 PM CDT Fatigue, unspecified type T4,FREE Routine 11/30/2024 2:30 PM CDT Balance problem VITAMIN D 25 (DEFICIENCY) Add On 11/30/2024 2:30 PM CDT Vitamin D deficiency IRON PLUS IRON BINDING CAP Add On 11/30/2024 2:30 PM CDT Normocytic anemia FERRITIN Add On 11/30/2024 2:30 PM CDT Normocytic anemia URINE CULTURE INDICATED (QUEST REFLEX ONLY) Routine 11/30/2024 2:30 PM CDT Fatigue, unspecified type CBC WITH AUTO DIFFERENTIAL Routine 11/30/2024 2:30 PM CDT Fatigue, unspecified type AMMONIA Routine 11/30/2024 2:30 PM CDT Confusion state FOLIC ACID Routine 11/30/2024 2:30 PM CDT Balance problem VITAMIN B12 Routine 11/30/2024 2:30 PM CDT Balance problem C-REACTIVE PROTEIN Routine 11/30/2024 2: 30 PM CDT Weakness SEDIMENTATION RATE Routine 11/30/2024 2: 30 PM CDT Weakness CK TOTAL Routine 11/30/2024 2:30 PM CDT Weakness TSH WITH REFLEX Routine 11/30/2024 2:30 PM CDT Fatigue, unspecified type COMP METABOLIC PANEL Routine 11/30/2024 2:30 PM CDT Balance problem CBC WITH AUTO DIFFERENTIAL Routine 11/30/2024 2:30 PM CDT Fatigue, unspecified type UA DIP W/REFLEX TO CULTURE (QUEST) Routine 11/30/2024 2:30 PM CDT Fatigue, unspecified type COVID/FLU/RSV PANEL Routine 11/30/2024 2 :03 PM CDT Fatigue, unspecified type Acute cough XR CHEST 2 VIEWS PA AND LATERAL Routine 11/30/2024 1:38 PM CDT Fatigue, unspecified type EKG 12 LEAD Routine 11/30/2024 12:00 AM CDT Weakness Dizziness XR MAMMO KAVITHA BILAT SCREEN Routine 09/29/2024 1:46 PM CDT Visit for screening mammogram SDNA-FIT EXTERNAL (COLOGUARD) Routine 09/24/2024 9:40 AM CDT Screening for colon cancer XR DXA BONE DENSITY 2 SITES AXIAL Routine 08/20/2023 10:44 AM CDT Asymptomatic postmenopausal state ANTI HCV Routine 12/31/2022 9:38 AM CDT Unintentional weight loss LC LIPID PANEL AND CHOL/HDL RATIO Routine 06/25/2022 9:04 AM CDT Lipid screening from Last 3 Months or Most Recently Relevant to Health Maintenance Results * CT CHEST ABDOMEN PELVIS W (12/02/2024 11:34 AM CDT) Anatomical Region Laterality Modality Abdomen, Pelvis, AORTA, LIVER, SPLEEN, CHEST Computed Tomography 12/02/2024 1:38 PM CDT Impressions 12/02/2024 1:38 PM CDT 1. Mildly increased/worsened pulmonary fibrotic changes in a UIP pattern, which may explain the patient`s fatigue. Otherwise, no acute findings in the chest. 2. No acute findings within the abdomen and pelvis. Please note that all CT scans at this facility use dose modulation, iterative reconstruction, and/or weight-based dosing when appropriate to reduce radiation dose to as low as reasonably achievable. Dictated by Kody Campa MD @ 12/02/2024 1:38:46 PM (Electronically Signed) Narrative 12/02/2024 1:38 PM CDT For Patients: As a result of the Cures Act, medical imaging exams and procedure reports are released immediately into your electronic medical record. You may view this report before your referring provider. If you have questions, please contact your health care provider. INDICATION: Fatigue TECHNIQUE: CT chest, abdomen and pelvis acquired with 75 cc of Omnipaque 350 IV contrast. COMPARISON: CT chest, abdomen, and pelvis 08/20/2023 FINDINGS: CHEST: Cardiovascular structures: Heart size is normal. Thoracic aorta and main pulmonary artery are normal in caliber. Mediastinum and elena: No mass or adenopathy. Lungs and pleura: Mildly increased peripheral fibrotic changes within a apical to basal gradient, including the posterior costophrenic angles. Associated honeycombing and interlobular septal thickening. No focal consolidation, pleural effusion, pneumothorax, or suspicious pulmonary nodule. Chest wall and axilla: No mass or adenopathy. Bones: No suspicious bone lesions. Unremarkable for age. ABDOMEN AND PELVIS: Liver: Unchanged right hepatic lobe cyst. No suspicious mass. Normal size and contour. Gallbladder and bile ducts: Unremarkable. Pancreas: Unremarkable. Spleen: Unremarkable. Adrenal glands: Unremarkable. Kidneys: Unremarkable. GI tract: Unremarkable. Vascular structures: Normal caliber abdominal aorta with mild atherosclerotic calcification. Lymph nodes: Unremarkable. Miscellaneous: Unremarkable. No free air or significant free fluid. Pelvic Organs: Unremarkable. Bones: No suspicious bone lesions. Unremarkable for age. Procedure Note Kody Campa MD - 12/02/2024 For Patients: As a result of the 21st Century Cures Act, medical imagingexams and procedure reports are released immediately into your electronicmedical record. You may view this report before your referring provider.If you have questions, please contact your health care provider. INDICATION: Fatigue TECHNIQUE: CT chest, abdomen and pelvis acquired with 75 cc of Omnipaque 350 IVcontrast. COMPARISON: CT chest, abdomen, and pelvis 08/20/2023 FINDINGS: CHEST: Cardiovascular structures: Heart size is normal. Thoracic aorta and mainpulmonary artery are normal in caliber. Mediastinum and elena: No mass or adenopathy. Lungs and pleura: Mildly increased peripheral fibrotic changes within aapical to basal gradient, including the posterior costophrenic angles.Associated honeycombing and interlobular septal thickening. No focalconsolidation, pleural effusion, pneumothorax, or suspicious pulmonarynodule. Chest wall and axilla: No mass or adenopathy. Bones: No suspicious bone lesions. Unremarkable for age. ABDOMEN AND PELVIS: Liver: Unchanged right hepatic lobe cyst. No suspicious mass. Normal sizeand contour. Gallbladder and bile ducts: Unremarkable. Pancreas: Unremarkable. Spleen: Unremarkable. Adrenal glands: Unremarkable. Kidneys: Unremarkable. GI tract: Unremarkable. Vascular structures: Normal caliber abdominal aorta with mildatherosclerotic calcification. Lymph nodes: Unremarkable. Miscellaneous: Unremarkable. No free air or significant free fluid. Pelvic Organs: Unremarkable. Bones: No suspicious bone lesions. Unremarkable for age. IMPRESSION: 1. Mildly increased/worsened pulmonary fibrotic changes in a UIP pattern,which may explain the patient`s fatigue. Otherwise, no acute findings inthe chest. 2. No acute findings within the abdomen and pelvis. Please note that all CT scans at this facility use dose modulation,iterative reconstruction, and/or weight-based dosing when appropriate toreduce radiation dose to as low as reasonably achievable. Dictated by Kody Campa MD @ 12/02/2024 1:38:46 PM (Electronically Signed) Nadiya Peralta Ruby DO CT Final Resul t * (ABNORMAL) CBC WITH AUTO DIFFERENTIAL (12/01/2024 4:00 PM CDT) Only the most recent of2 resultswithin the time period is included. Pathologist [facility] WHITE BLOOD COUNT 5.8 4.5 - 11.0 thou/cu mm 12/02/2024 1:10 AM [facility] RED BLOOD COUNT 3.45(L) 4.00 - 5.20 mil/cu mm 12/02/2024 1:10 AM [facility] HEMOGLOBIN 10.9(L) 12.0 - 16.0 g/dL 12/02/2024 1:10 AM [facility] HEMATOCRIT 32.7(L) 33.0 - 51.0 % 12/02/2024 1:10 AM [facility] MCV 95 80 - 100 fL 12/02/2024 1:10 AM [facility] MCH 31.6 26.0 - 34.0 pg 12/02/2024 1:10 AM [facility] MCHC 33.3 32.0 - 36.0 g/dL 12/02/2024 1:10 AM [facility] RDW 14.4 11.5 - 15.5 % 12/02/2024 1:10 AM [facility] PLATELET COUNT 297 140 - 440 thou/cu mm 12/02/2024 1:10 AM [facility] MPV 9.5 6.5 - 11.0 fL 12/02/2024 1:10 AM [facility] NRBC 0.0 % 12/02/2024 1:10 AM [facility] ABS NRBC 0.0 thou /cu mm 12/02/2024 1:10 AM [facility] % NEUT 73.3 % 12/02/2024 1:10 AM T [facility] % LYMPH 19.4 % 12/02/2024 1:10 AM [facility] % MONO 3.3 % 12/02/2024 1:10 AM T [facility] % EOS 2.4 % 12/02/2024 1:10 AM CDT [facility] % BASO 0.9 % 12/02/2024 1:10 AM CDT [facility] % IMMATURE GRAN (METAS,MYELOS,VT OS) 0.7 % 12/02/2024 1:10 AM CDT [facility] ABSOLUTE NEUTROPHILS 4.3 1.7 - 7.0 thou/cu mm 12/02/2024 1:10 AM CDT [facility] ABSOLUTE LYMPHOCYTES 1.1 0.9 - 2.9 thou/cu mm 12/02/2024 1:10 AM CDT [facility] ABSOLUTE MONOCYTES 0.2 <0.9 thou/cu mm 12/02/2024 1:10 AM CDT [facility] TRAL LABORATORY ABSOLUTE EOSINOPHILS 0.1 <0.5 thou/cu mm 12/02/2024 1:10 AM CDT [facility] ABSOLUTE BASOPHILS 0.1 <0.3 thou/cu mm 12/02/2024 1:10 AM CDT [facility] TR[facility] ABSOLUTE IMMATURE GRANULOCYTES(MET ,MYELOS,PROS) 0.0 <0.3 thou/cu mm 12/02/2024 1:10 AM CDT [facility] Blood BLOOD SPECIMEN / Unknown [facility] Collect / Unknown 12/01/2024 4:00 PM CDT 12/01/2024 4:00 PM CDT us Nadiya Beltran DO HEMATOLOGY Final Resul t [facility] [address] [place] [address], * PERIPHERAL BLD MORPHOLOGY [47910.2] (12/01/2024 4:00 PM CDT) Case Report Special Hematology Report Case: [id number] Authorizing Provider: Nadiya Beltran DO Collected: 12/01/2024 1600 Ordering Location: [facility] Received: 12/01/[address] [place] [address] Pathologist: Serafin Vargas MD Specimen: Blood 12/02/2024 6:45 PM CDT [facility] EN[facility]AL [facility] Final Diagnosis PERIPHERAL BLOOD: 1. Mild normocytic anemia 12/02/2024 6:45 PM CDT [facility] at 1845 CDT Comment The specific etiology of the anemia is not apparent from the blood smear findings. Normocytic anemia may be associated with a variety of conditions, including anemia of chronic disease, hypothyroidism, active bleeding, early iron deficiency, or medication effect. The morphologic features are not suggestive of hemolysis. No definite myelodysplastic features are seen. 12/02/2024 6:45 PM CDT [facility] Clinical Information 74-year-old with anemia, recent hypercalcemia. 11/30/24 14:30 FERRITIN: 268 IRON: 109 IRON BINDING CAPACITY : 260 IRON,% SATURATION : 42 VITAMIN B12: 1098 FOLIC ACID: >24.0 12/02/2024 6:45 PM CDT [facility] CBC and Differential HEMATOLOGY PARAMETERS Tested at: [facility] [employer] [facility] RESULTS EXPECTED VALUES WBC: 5.8 4.5-57p1408/cumm RBC: 3.45 4.00-5.20 mil/cummDECREASED HGB: 10.9 12-16 gm/dl DECREASED HCT: 32.7 33-51% DECREASED MCV: 95.0 80-100 fl NORMOCYTIC MCH: 31.6 26-34 pg MCHC: 33.3 32-36 gm/dl NORMOCHROMIC RDW: 14.4 11.5-15.5% PLT: 297 140-305s9858/uL MPV: 9.5 6.5-11 fl Retic: 1.4 0.5-1.5% Differential Absolute (%) Expected (%) (x10*9/L) (x10*9/L) Neutrophils: 4.3 (74.1) 1.7-7.0 (42-72%) Lymphocytes: 1.1 (19) 0.9-2.9 (20-44%) Monocytes: 0.2 (3.4) <0.9 (0-11%) Eosinophils: 0.1 (1.7) <0.5 (0-2%) Basophils: 0.1 (1.7) <0.3 (<3.0%) 12/02/2024 6:45 PM CDT [facility] ENTRIN LABORATORY Microscopic Description The final diagnosis is based on microscopic examination of an appropriately stained blood smear. 12/02/2024 6:45 PM CDT [facility] ENTRAL LABORATORY Additional Information Interpreted at [facility], Central Laboratory - [address] [facility] [address], [place] [address] 12/02/2024 6:45 PM CDT [facility]- ENTRAL LABORATORY Blood BLOOD SPECIMEN / Unknown [facility] / Unknown 12/01/2024 4:00 PM CDT 12/01/2024 4:00 PM CDT Comment:CURRENT MEDICATIONSC urrent Outpatient Medications: calcium carbonate (OS-LUCIE 500) 500 mg calcium (1,250 mg) tablet, Take 500 mg by mouth two times daily with meals., Disp: , Rfl: celecoxib (CELEBREX) 200 mg capsule, Take one daily by mouth. If in pain may take twice daily., Disp: , Rfl: 0 CLARITIN-D 12 HOUR 5 MG-120 MG TAB, take 1 tablet by oral route every 12 hours PRN, Disp: 180, Rfl: 1 etanercept (EnbreL) 50 mg/mL (1 mL) syringe, Inject 50 mg subcutaneous every Thursday., Disp: , Rfl: FOLIC ACID 800 MCG TAB, take 1 tablet (0.8 mg) by oral route once daily, Disp: , Rfl: 0 gabapentin (NEURONTIN) 300 mg capsule, Take 1 Capsule (300 mg) by mouth at bedtime., Disp: 30 Capsule, Rfl: 3 hydroCHLOROthiazide 25 mg tablet, Take 1 Tablet (25 mg) by mouth once daily., Disp: 90 Tablet, Rfl: 3 levETIRAcetam (KEPPRA XR) 500 mg Tb24 Extended-Release tablet, Take 1 Tablet (500 mg) by mouth at bedtime., Disp: 90 Tablet, Rfl: 3 levothyroxine (SYNTHROID) 125 mcg tablet, Take 1 Tablet (125 mcg) by mouth once daily., Disp: 90 Tablet, Rfl: 3 losartan (COZAAR) 100 mg tablet, Take 1 Tablet (100 mg) by mouth once daily., Disp: 90 Tablet, Rfl: 3 methotrexate 25 mg/mL injection, Inject 1.1 mL subcutaneous every Thursday., Disp: , Rfl: jdfvystlgdeuv-ydnkoyug-aiilvd (Multivitamin 50 Plus) tab tablet, Take 1 Tablet by mouth once daily., Disp: , Rfl: mupirocin 2% ointment, Apply topically to affected area(s) three times daily. Apply twice daily to affected areas, Disp: 22 g, Rfl: 1 ondansetron 4 mg disintegrating tablet, Place 1 Tablet (4 mg) on the tongue every 8 hours if needed for Nausea/Vomiting. (Patient not taking: Reported on 10/10/2024), Disp: 8 Tablet, Rfl: 1 oxyCODONE (ROXICODONE) 5 mg immediate release tablet, Take 1 Tablet (5 mg) by mouth once daily if needed (Severe pain)., Disp: 20 Tablet, Rfl: 0 psyllium (MetamuciL) 0.4 gram capsule, Take 1 Capsule by mouth once daily., Disp: , Rfl: 0 traMADoL 50 mg tablet, Take 1 Tablet (50 mg) by mouth every 6 hours if needed for Pain., Disp: 15 Tablet, Rfl: 0 traZODone (DESYREL) 50 mg tablet, Take 2-3 tablets at bedtime for sleep, Disp: 270 Tablet, Rfl: 3 wheelchair, Wheelchair: Standard with leg rests: (Swing away Length of need: 6 months (Patient not taking: Reported on 10/10/2024), Disp: 1 Each, Rfl: 0 us Nadiya Beltran DO HEMATOLOGY Final Resul t [facility] [address] [place] [address], [place] * RETICULOCYTES [71967.0] (12/01/2024 4:00 PM CDT) RETIC% 1.4 0.5 - 1.5 % 12/02/2024 1:10 AM CDT [facility] RETIC (ABSOLUTE) 0.05 0.03 - 0.08 mil/cu mm 12/02/2024 1:10 AM CDT [facility] Blood BLOOD SPECIMEN / Unknown [facility] / Unknown 12/01/2024 4:00 PM CDT 12/01/2024 4:00 PM CDT Nadiya Beltran DO HEMATOLOGY Final Resul t [facility] [address] [address], * (ABNORMAL) PTH,INTACT (12/01/2024 4:00 PM CDT) PARATHYROID HORMONE, INTACT 9(L) 16 - 77 pg/mL 12/02/2024 11:44 AM CDT [email or web address] Comment: Interpretive Guide Intact PTH Calcium ------- Normal Parathyroid Normal Normal Hypoparathyroidism Low or Low Normal Low Hyperparathyroidism Primary Normal or High High Secondary High Normal or Low Tertiary High High Non-Parathyroid Hypercalcemia Low or Low Normal High CALCIUM 13.8(HH) 8.6 - 10.4 mg/dL 12/02/2024 11:44 AM CDT [facility] Comment:Verified by repeat a nalysis. Blood BLOOD SPECIMEN / Unknown [facility] / Unknown 12/01/2024 4:00 PM CDT 12/01/2024 4:00 PM CDT Nadiya Beltran DO SEND OUTS Final Resul t [email or web address] [address] [place] [address], [place] [phone] * MR HEAD BRAIN WO MR ANGIO HEAD WO NECK WWO (12/01/2024 10:53 AM CDT) Anatomical Region Laterality Modality NECK, CAROTID, HEAD Magnetic Res onance 12/01/2024 11:0 4 AM CDT Addenda Addendum by Gigi Vargas MD on 12/01/2024 11:12 AM CDT For Patients: As a result of the Cures Act, medical imaging exams and procedure reports are released immediately into your electronic medical record. You may view this report before your referring provider. If you have questions, please contact your health care provider. Dictation for this exam included within the brain MRI report from the same date. Dictated by Gigi Vargas MD @ 12/01/2024 11:12:11 AM (Electronically Signed) Addendum by Gigi Vargas MD on 12/01/2024 11:11 AM CDT For Patients: As a result of the Cures Act, medical imaging exams and procedure reports are released immediately into your electronic medical record. You may view this report before your referring provider. If you have questions, please contact your health care provider. Dictation for this exam included within the brain MRI report from the same date. Dictated by Gigi Vargas MD @ 12/01/2024 11:11:28 AM (Electronically Signed) Impressions 12/01/2024 11:04 AM CDT 1. MRI Head: No acute infarction or other acute intracranial pathology. Mild chronic microvascular ischemic changes and moderate generalized parenchymal volume loss. 2. MRA Head: Major intracranial arteries are patent. 3. MRA Neck: Major cervical arteries are patent. Dictated by Gigi Vargas MD @ 12/01/2024 11:04:48 AM (Electronically Signed) Narrative 12/01/2024 11:04 AM CDT For Patients: As a result of the Cures Act, medical imaging exams and procedure reports are released immediately into your electronic medical record. You may view this report before your referring provider. If you have questions, please contact your health care provider. INDICATION: Imbalance. TECHNIQUE: Brain MRI without contrast. MRA head without contrast. MRA neck with and without contrast. MIP reconstructions included. 15 cc gadolinium based intravenous contrast administered. COMPARISON: Brain MRI from 09/01/2022. FINDINGS: MRI Head:No acute infarction. Microhemorrhage left thalamus, usually hypertensive in etiology. No intracranial blood products elsewhere. Patchy FLAIR hyperintensities within the supratentorial white matter, typical for chronic microvascular ischemic change. Moderate generalized parenchymal volume loss. No hydrocephalus or extra- axial collections. The pituitary gland, parasellar structures and optic chiasm are normal. The orbital contents are normal. No calvarial or skull base marrow signal abnormality. No obstructive sinus disease. A left-sided mastoid effusion. No extracranial soft tissue findings. MRA Head:No proximal large vessel occlusion. The anterior cerebral arteries are patent. The middle cerebral arteries are patent. The posterior cerebral arteries are patent. The intradural vertebral arteries and basilar artery are patent. The intracranial internal carotid arteries are patent. No aneurysm or high flow vascular malformation. MRA Neck:There is a 3 vessel configuration of the aortic arch. The brachiocephalic artery is patent. The proximal subclavian arteries are patent. The common carotid arteries are patent. The internal carotid arteries are patent. The cervical vertebral arteries are patent. No abnormal dilatation of the major cervical arteries. Procedure Note Gigi Vargas MD - 12/01/2024 For Patients: As a result of the Cures Act, medical imagingexams and procedure reports are released immediately into your electronicmedical record. You may view this report before your referring provider.If you have questions, please contact your health care provider. INDICATION: Imbalance. TECHNIQUE: Brain MRI without contrast. MRA head without contrast. MRA neck with andwithout contrast. MIP reconstructions included. 15 cc gadolinium basedintravenous contrast administered. COMPARISON: Brain MRI from 09/01/2022. FINDINGS: MRI Head:No acute infarction. Microhemorrhage left thalamus, usuallyhypertensive in etiology. No intracranial blood products elsewhere. PatchyFLAIR hyperintensities within the supratentorial white matter, typical forchronic microvascular ischemic change. Moderate generalized parenchymalvolume loss. No hydrocephalus or extra- axial collections. The pituitarygland, parasellar structures and optic chiasm are normal. The orbital contents are normal. No calvarial or skull base marrow signalabnormality. No obstructive sinus disease. A left-sided mastoid effusion.No extracranial soft tissue findings. MRA Head:No proximal large vessel occlusion. The anterior cerebralarteries are patent. The middle cerebral arteries are patent. Theposterior cerebral arteries are patent. The intradural vertebral arteriesand basilar artery are patent. The intracranial internal carotid arteriesare patent. No aneurysm or high flow vascular malformation. MRA Neck:There is a 3 vessel configuration of the aortic arch. Thebrachiocephalic artery is patent. The proximal subclavian arteries arepatent. The common carotid arteries are patent. The internal carotidarteries are patent. The cervical vertebral arteries are patent. Noabnormal dilatation of the major cervical arteries. IMPRESSION: 1. MRI Head: No acute infarction or other acute intracranial pathology.Mild chronic microvascular ischemic changes and moderate generalizedparenchymal volume loss. 2. MRA Head: Major intracranial arteries are patent. 3. MRA Neck: Major cervical arteries are patent. Dictated by Gigi Vargas MD @ 12/01/2024 11:04:48 AM (Electronically Signed) us Nadiya Beltran DO MR Edited Resu lt - Final * (ABNORMAL) UA Dip w/Reflex to Culture ([facility]) [[id number]] (11/30/2024 2:30 PM CDT) COLOR YELLOW YELLOW 11/30/2024 3:55 PM CDT [facility] APPEARANCE SLIGHTLY CLOUDY(A) CLEAR 11/30/2024 3:55 PM CDT [facility] SPECIFIC GRAVITY 1.015 1.001 - 1.035 11/30/2024 3:55 PM CDT [facility] PH 6.5 5.0 - 8.0 11/30/2024 3:55 PM CDT [facility] GLUCOSE NEGATIVE NEGATIVE 11/30/2024 3:55 PM CDT [facility] BILIRUBIN NEGATIVE NEGATIVE 11/30/2024 3:55 PM CDT [facility] KETONES NEGATIVE NEGATIVE 11/30/2024 3:55 PM CDT [facility] OCCULT BLOOD NEGATIVE NEGATIVE 11/30/2024 3:55 PM CDT [facility] PROTEIN NEGATIVE NEGATIVE 11/30/2024 3:55 PM CDT [facility] NITRITE NEGATIVE NEGATIVE 11/30/2024 3:55 PM CDT [facility] LEUKOCYTE ESTERASE NEGATIVE NEGATIVE 11/30/2024 3:55 PM CDT [facility] Urine URINE SPECIMEN / Unknown Non-Blood / Unknown 11/30/2024 2:30 PM CDT 11/30/2024 2:30 PM CDT us Nadiya Rushaundrea DO URINE Final Resul t Performing Organization Address [facility] Co de Phone Number [facility] [address] [address], [place] [phone] [facility] [address] [place] [address], [place] [phone] * URINE CULTURE INDICATED ([facility] REFLEX ONLY) (11/30/2024 2:30 PM CDT) URINE CULTURE INDICATED SEE NOTE 11/30/2024 3:55 PM CDT [facility] Comment:CULTURE INDICATED - RESULTS TO FOLLOW Urine URINE SPECIMEN / Unknown Non-Blood / Unknown 11/30/2024 2:30 PM CDT 11/30/2024 2:30 PM CDT us Nadiya Peralta Ruby DO URINE Final Resul t Performing Organization Address [facility] Co de Phone Number [facility] [address] [address], [place] [phone] * (ABNORMAL) SEDIMENTATION RATE (11/30/2024 2:30 PM CDT) Pathologist [facility] SED RATE BY MODIFIED WESTERGREN 31(H) < OR = 30 mm/h 12/01/2024 4:43 AM CDT [facility] Blood BLOOD SPECIMEN / Unknown [facility] Collect / Unknown 11/30/2024 2:30 PM CDT 11/30/2024 2:30 PM CDT us Nadiya Rushewamargaret DO HEMATOLOGY Final Resul t Performing Organization Address [facility] Co de Phone Number [facility] [address] [address], [place] [phone] * (ABNORMAL) TSH WITH REFLEX (11/30/2024 2:30 PM CDT) TSH W/REFLEX TO FT4 0.04(L) 0.40 - 4.50 mIU/L 12/01/2024 7:09 AM CDT [facility] Blood BLOOD SPECIMEN / Unknown [facility] / Unknown 11/30/2024 2:30 PM CDT 11/30/2024 2:30 PM CDT us Nadiya Beltran DO CHEMISTRY Final Resul t Performing Organization Address [facility] Co de Phone Number [email or web address] [address] [address], * VITAMIN D 25 (DEFICIENCY) (11/30/2024 2:30 PM CDT) VITAMIN D,25-OH,TOTAL,IA 71 30 - 100 ng/mL 12/02/2024 4:26 AM CDT [email or web address] Comment: Vitamin D Status 25-OH Vitamin D: Deficiency: <20 ng/mL Insufficiency: 20 - 29 ng/mL Optimal: > or = 30 ng/mL For 25-OH Vitamin D testing on patients on D2-supplementation and patients for whom quantitation of D2 and D3 fractions is required, the QuestAssureD(TM) 25-OH VIT D, (D2,D3), LC/MS/MS is recommended: order code 70836 (patients >2yrs). See Note 1 Note 1 For additional information, please refer to http://education.[employer]/faq/BDI147 (This link is being provided for informational/ educational purposes only.) Blood BLOOD SPECIMEN / Unknown [facility] / Unknown 11/30/2024 2:30 PM CDT 11/30/2024 2:30 PM CDT us Nadiya Beltran DO SEND OUTS Final Resul t Performing Organization Address [facility]/ZIP Co de Phone Number [email or web address] [address] [address], [place] [phone] * IRON PLUS IRON BINDING CAP (11/30/2024 2:30 PM CDT) IRON, TOTAL 109 45 - 160 mcg/dL 12/02/2024 1:23 AM CDT [facility] IRON BINDING CAPACITY 260 250 - 450 mcg/dL (calc) 12/02/2024 1:23 AM CDT [facility] % SATURATION 42 16 - 45 % (calc) 12/02/2024 1:23 AM CDT [facility] Blood BLOOD SPECIMEN / Unknown [facility] / Unknown 11/30/2024 2:30 PM CDT 11/30/2024 2:30 PM CDT Nadiya Beltran DO CHEMISTRY Final Resul t Performing Organization Address [facility] de Phone Number [email or web address] [address] [address], * URINE CULTURE (11/30/2024 2:30 PM CDT) Pathologist [facility] CULTURE, URINE, ROUTINE SEE NOTE 12/01/2024 9:59 PM CDT [facility] Comment: CULTURE, URINE, ROUTINE Micro Number: [id number] Test Status: Final Specimen Source: Urine Specimen Quality: Adequate Result: Mixed genital alivia isolated. These superficial bacteria are not indicative of a urinary tract infection. No further organism identification is warranted on this specimen. If clinically indicated, recollect clean-catch, mid-stream urine and transfer immediately to Urine Culture Transport Tube. Urine URINE SPECIMEN / Unknown Non-Blood / Unknown 11/30/2024 2:30 PM CDT 11/30/2024 2:30 PM CDT Nadiya Beltran DO MICROBIOLOGY Final Resul t Performing Organization Address [facility] Co de Phone Number [email or web address] [address] [address], * (ABNORMAL) C-REACTIVE PROTEIN (11/30/2024 2:30 PM CDT) C-REACTIVE PROTEIN (MG/L) 22.9(H) <8.0 mg/L 12/01/2024 11:42 AM CDT [facility] Blood BLOOD SPECIMEN / Unknown [facility] / Unknown 11/30/2024 2:30 PM CDT 11/30/2024 2:30 PM CDT Nadiya Beltran DO CHEMISTRY Final Resul t Performing Organization Address [facility] de Phone Number [facility] [address] [address], [place] [phone] * T4,FREE (11/30/2024 2:30 PM CDT) T4, FREE 1.8 0.8 - 1.8 ng/dL 12/01/2024 7:09 AM CDT [facility] Blood BLOOD SPECIMEN / Unknown [facility] / Unknown 11/30/2024 2:30 PM CDT 11/30/2024 2:30 PM CDT Nadiya Beltran DO CHEMISTRY Final Resul t Performing Organization Address [facility] Phone Number [facility] [address] [address], [place] [phone] * FOLIC ACID (11/30/2024 2:30 PM CDT) FOLATE, SERUM >24.0 ng/mL 12/01/2024 3:02 AM CDT [facility] Comment: Reference Range Low: <3.4 Borderline: 3.4-5.4 Normal: >5.4 Blood BLOOD SPECIMEN / Unknown [facility] / Unknown 11/30/2024 2:30 PM CDT 11/30/2024 2:30 PM CDT us Nadiya Beltran DO CHEMISTRY Final Resul t Performing Organization Address [facility] Co de Phone Number [facility] [address] [place] [address], [place] [phone] * FERRITIN (11/30/2024 2:30 PM CDT) FERRITIN 268 16 - 288 ng/mL 12/02/2024 4:41 AM CDT [facility] Blood BLOOD SPECIMEN / Unknown [facility] / Unknown 11/30/2024 2:30 PM CDT 11/30/2024 2:30 PM CDT us Nadiya Beltran DO CHEMISTRY Final Resul t Performing Organization Address City/[facility]/ZIP Co de Phone Number [facility] [address] [address], [place] [phone] * VITAMIN B12 (11/30/2024 2:30 PM CDT) VITAMIN B12 1098 200 - 1100 pg/mL 12/01/2024 3:02 AM CDT [facility] Blood BLOOD SPECIMEN / Unknown [facility] / Unknown 11/30/2024 2:30 PM CDT 11/30/2024 2:30 PM CDT us Nadiya Beltran DO CHEMISTRY Final Resul t Performing Organization Address [facility] de Phone Number [facility] [address] [address], [place] [phone] * CK TOTAL (11/30/2024 2:30 PM CDT) CREATINE KINASE, TOTAL 21 18 - 225 U/L 12/01/2024 4:23 AM CDT [facility] Blood BLOOD SPECIMEN / Unknown [facility] / Unknown 11/30/2024 2:30 PM CDT 11/30/2024 2:30 PM CDT us Nadiya Beltran DO CHEMISTRY Final Resul t Performing Organization Address [facility]/ZIP Co de Phone Number [facility] [address] [address], [place] [phone] * AMMONIA (11/30/2024 2:30 PM CDT) AMMONIA (P) 24 < OR = 72 umol/L 12/01/2024 3:50 PM CDT [facility] Blood BLOOD SPECIMEN / Unknown [facility] / Unknown 11/30/2024 2:30 PM CDT 11/30/2024 2:30 PM CDT Nadiya Beltran DO CHEMISTRY Final Resul t [facility] [address] [place] [address], * (ABNORMAL) COMP METABOLIC PANEL (11/30/2024 2:30 PM CDT) SODIUM 136 135 - 146 mmol/L 12/01/2024 4:23 AM CDT [facility] POTASSIUM 4.0 3.5 - 5.3 mmol/L 12/01/2024 4:23 AM CDT [facility] CHLORIDE 101 98 - 110 mmol/L 12/01/2024 4:23 AM CDT [facility] CARBON DIOXIDE 30 20 - 32 mmol/L 12/01/2024 4:23 AM CDT [facility] GLUCOSE 103(H) 65 - 99 mg/dL 12/01/2024 4:23 AM CDT [facility] Comment: Fasting reference interval For someone without known diabetes, a glucose value between 100 and 125 mg/dL is consistent with prediabetes and should be confirmed with a follow-up test. CALCIUM 12.9(H) 8.6 - 10.4 mg/dL 12/01/2024 4:23 AM CDT [facility] CREATININE 1.08(H) 0.60 - 1.00 mg/dL 12/01/2024 4:23 AM CDT [facility] BUN/CREATININE RATIO 19 6 - 22 (calc) 12/01/2024 4:23 AM CDT [facility] EGFR 54(L) > OR = 60 mL/min/1. 73m2 12/01/2024 4:23 AM CDT [facility] ALBUMIN 3.7 3.6 - 5.1 g/dL 12/01/2024 4:23 AM CDT [facility] PROTEIN, TOTAL 6.3 6.1 - 8.1 g/dL 12/01/2024 4:23 AM CDT [facility] BILIRUBIN, TOTAL 0.6 0.2 - 1.2 mg/dL 12/01/2024 4:23 AM CDT [facility] ALKALINE PHOSPHATASE 68 37 - 153 U/L 12/01/2024 4:23 AM CDT [facility] ALT 14 6 - 29 U/L 12/01/2024 4:23 AM CDT [facility] AST 24 10 - 35 U/L 12/01/2024 4:23 AM CDT [facility] UREA NITROGEN (BUN) 21 7 - 25 mg/dL 12/01/2024 4:23 AM CDT [facility] GLOBULIN 2.6 1.9 - 3.7 g/dL (calc) 12/01/2024 4:23 AM CDT [facility] ALBUMIN/GLOBULIN RATIO 1.4 1.0 - 2.5 (calc) 12/01/2024 4:23 AM CDT [facility] Blood BLOOD SPECIMEN / Unknown [facility] / Unknown 11/30/2024 2:30 PM CDT 11/30/2024 2:30 PM CDT us Nadiya Beltran DO CHEMISTRY Final Resul t [facility] [address] [place] [address], * COVID/FLU/RSV PANEL (11/30/2024 2:03 PM CDT) COVID 19 [place] MOLECULAR Negative Negative 12/01/2024 4:12 AM CDT [facility] TRAL LABORATORY INFLUENZA A PCR Negative 4:12 AM CDT [facility] INFLUENZA B PCR Negative 4:12 AM CDT [facility] Respiratory Syncytial Virus Negative 12/01/2024 4:12 AM CDT [facility] TR[facility] LAB[facility]ATORY Swab (Nasal Swab) Non-Blood / Unknown 11/30/2024 2:03 PM CDT 11/30/2024 2:03 PM CDT Nadiya Beltran DO MICROBIOLOGY Final Resul t [facility] [address] [place] [address], [place] * XR CHEST 2 VIEWS PA AND LATERAL (11/30/2024 1:38 PM CDT) Anatomical Region Laterality Modality CHEST, THORAX, Lung, HEART Compu iggy Radiography 11/30/2024 2:21 PM CDT Impressions 11/30/2024 2:21 PM CDT No acute findings. Dictated by Seun Valdes MD @ 11/30/2024 2:21:41 PM (Electronically Signed) Narrative 11/30/2024 2:21 PM CDT For Patients: As a result of the Cures Act, medical imaging exams and procedure reports are released immediately into your electronic medical record. You may view this report before your referring provider. If you have questions, please contact your health care provider. INDICATION: Fatigue, unspecified type TECHNIQUE: Chest 2 views COMPARISON: CT 08/20/2023 FINDINGS: Chronic fibrosis with bronchiectasis not significantly changed in a lower lung zone distribution bilaterally. No acute infiltrate or pulmonary edema. No pleural effusion. Stable mediastinum. No fracture. Degenerative changes. Procedure Note Seun Valdes MD - 11/30/2024 For Patients: As a result of the Cures Act, medical imagingexams and procedure reports are released immediately into your electronicmedical record. You may view this report before your referring provider.If you have questions, please contact your health care provider. INDICATION: Fatigue, unspecified type TECHNIQUE: Chest 2 views COMPARISON: CT 08/20/2023 FINDINGS: Chronic fibrosis with bronchiectasis not significantly changed in a lowerlung zone distribution bilaterally. No acute infiltrate or pulmonaryedema. No pleural effusion. Stable mediastinum. No fracture. Degenerativechanges. IMPRESSION: No acute findings. Dictated by Seun Valdes MD @ 11/30/2024 2:21:41 PM (Electronically Signed) us Nadiya Beltran DO GENERAL IMAGING Final Resul t * EKG 12 LEAD (11/30/2024 12:00 AM CDT) us Nadiya Beltran DO EKG ORD Final Resul t * XR MAMMO KAVITHA BILAT SCREEN (09/29/2024 1:46 PM CDT) Anatomical Region Laterality Modality BREASTS, Breast Left, Breast Right Bilateral Mammography Impressions 10/03/2024 2:58 PM CDT There is no radiographic evidence for malignancy. Recommend annual mammograms. MAMMOGRAM ASSESSMENT: ACR 1 Negative PATIENTS: You will also receive a letter with your examination results in an easy to read format. If you have questions about your results, please contact your referring provider. Narrative 10/03/2024 2:58 PM CDT For Patients: As a result of the Century Cures Act, medical imaging exams and procedure reports are released immediately into your electronic medical record. You may view this report before your referring provider. If you have questions, please contact your health care provider. XR MAMMO KAVITHA BILAT SCREEN [[id number]] CLINICAL HISTORY: This is an asymptomatic 74 y.o. patient. INDICATION FOR EXAM: Mammogram Screening. TECHNIQUE: CC and MLO views were obtained. This study was evaluated with the assistance of Computer-Aided Detection. Breast Tomosynthesis was used in interpretation. COMPARISON FILM: Yes 08/20/23 [facility] 08/06/22 [facility] FINDINGS: There are scattered areas of fibroglandular density. There are no dominant masses, suspicious micro calcifications or areas of architectural distortion. Sharon Sims DO MAMMO Final Result * SDNA-FIT EXTERNAL (COLOGUARD) (09/24/2024 9:40 AM CDT) NONINV COLON CA DNA+OCC BLD SCRN STL-IMP Negative Negative 09/30/2024 11:51 AM CDT [facility] (CLIA #:[id number]) Comment: The Cologuard (TM) test was performed on this specimen. NEGATIVE TEST RESULT. A negative Cologuard result indicates a low likelihood that a colorectal cancer (CRC) or advanced adenoma (adenomatous polyps with more advanced pre-malignant features) is present. The chance that a person with a negative Cologuard test has a colorectal cancer is less than 1 in 1500 (negative predictive value >99.9%) or has an advanced adenoma is less than 5.3% (negative predictive value 94.7%). These data are based on a prospective cross-sectional study of 10,000 individuals at average risk for colorectal cancer who were screened with both Cologuard and colonoscopy. (Arnold Marroquin al, N Engl J Med 2014;370(14):1286- 1297) The normal value (reference range) for this assay is negative. COLOGUARD RE-SCREENING RECOMMENDATION: Periodic colorectal cancer screening is an important part of preventive healthcare for asymptomatic individuals at average risk for colorectal cancer. Following a negative Cologuard result, the [employer] Society and U.S. Multi-Society Task Force screening guidelines recommend a Cologuard re-screening interval of 3 years. References: [employer] Society Guideline for Colorectal Cancer Screening: https://www.cancer.org/cancer/notel-nyrvir-gywmtv/ngcitjqro-hoqofmxwz-ipkagby/ac s-rec ommendations.html.; Jeff DK, Rosalina LARIOS, Ramez AlvarezK, Colorectal Cancer Screening: Recommendations for Physicians and Patients from the U.S. Multi-Society Task Force on Colorectal Cancer Screening , Am J Gastroenterology 2017; 112:2389-5772. TEST DESCRIPTION: Composite algorithmic analysis of stool DNA-biomarkers with hemoglobin immunoassay. Quantitative values of individual biomarkers are not reportable and are not associated with individual biomarker result reference ranges. Cologuard is intended for colorectal cancer screening of adults of either sex, 45 years or older, who are at average-risk for colorectal cancer (CRC). Cologuard has been approved for use by the U.S. FDA. The performance of Cologuard was established in a cross sectional study of average-risk adults aged 50-84. Cologuard performance in patients ages 45 to 49 years was estimated by sub-group analysis of near-age groups. Colonoscopies performed for a positive result may find as the most clinically significant lesion: colorectal cancer [4.0%], advanced adenoma (including sessile serrated polyps greater than or equal to 1cm diameter) [20%] or non- advanced adenoma [31%]; or no colorectal neoplasia [45%]. These estimates are derived from a prospective cross-sectional screening study of 10,000 individuals at average risk for colorectal cancer who were screened with both Cologuard and colonoscopy. (Arnold Marroquin al, N Engl J Med 2014;370(14):6189-1157.) Cologuard may produce a false negative or false positive result (no colorectal cancer or precancerous polyp present at colonoscopy follow up). A negative Cologuard test result does not guarantee the absence of CRC or advanced adenoma (pre-cancer). The current Cologuard screening interval is every 3 years. ([employer] Cancer Society and U.S. Multi-Society Task Force). Cologuard performance data in a 10,000 patient pivotal study using colonoscopy as the reference method can be accessed at the following location: www.logolineup/results. Additional description of the Cologuard test process, warnings and precautions can be found at www.DacentecogIncentivyzerd.com. Stool specimen (specimen) (Rectum) 09/24/2024 9:40 AM CDT 09/27/2024 8:00 AM CDT Sharon Sims DO URINE Final Result [facility] (CLIA #:[id number]) [address] [place] [address], * (ABNORMAL) XR DXA BONE DENSITY 2 SITES AXIAL (08/20/2023 10:44 AM CDT) Anatomical Region Laterality Modality Spine, HIPS, HIPL, HIPR Other Impressions 08/29/2023 5:41 PM CDT Osteopenia. RECOMMENDATIONS: The National Osteoporosis Foundation recommends pharmacologic treatment for patients with T-scores of -2.5 or less, patients with prior history of fragility fractures, or patients with 10-year probability of greater than 3% at hips or greater than 20% of suffering major osteoporotic fractures. Recommend continued optimization of calcium and vitamin D intake through dietary means and/or supplementation and regular exercise. Repeat scan recommended in 3-5 years. Elizabeth Aguirre PA-C [facility] 08/29/2023 Narrative 08/29/2023 5:41 PM CDT For Patients: Results are automatically released to your [facility]) account once available, in compliance with federal regulations. This means that you may see your results before your provider has had a chance to review them. Please allow 2-3 business days for your provider to comment on the results. XR DXA Bone Mineral Density (BMD) EXAM LOCATION: [facility] [address] [facility] [address] PATIENT NAME: Brenda Malcolm DATE OF : 1950 EXAM DATE: 08/20/2023 REQUESTING PROVIDER: Sharon Sims DO GENDER AT : female HEIGHT: 5' 5 (08/10/2023) WEIGHT: 135 lb 12.8 oz (08/10/2023) MENOPAUSAL STATUS: Postmenopausal RACE/ETHNICITY: White RISK FACTORS: Rheumatoid Arthritis, Smoking (prior), Weight < 127 lbs., and White Race CURRENT MEDICATION FOR BONE LOSS: NONE INDICATION: Asymptomatic postmenopausal state COMPARISON DATE(S): 2010 (spine) and 2018 (hips) DXA scans are compared to prior studies for a patient only when the two (or more) studies were performed on the same scanner. It is not possible to compare data generated on one scanner to data from another because there are not standards in DXA equipment. This applies even if the two scanners are made by the same copying machine mechanic. PROCEDURE: Dual-energy x-ray absorptiometry performed with routine technique. Reporting is completed in the form of a T-score. The T-score represents the standard deviation from peak bone mass based on young healthy adult. A Z-score is used for diagnosis in premenopausal women, and for men under the age of 50. FINDINGS: RESULT LUMBAR SPINE L2 - L4 BMD: 1.350 g/cm2 T-Score: + 1.1 Z-Score: + 3.0 Change from prior in 2010: Decrease 7.3%. RESULTS FEMUR Left femoral neck BMD: 0.813 g/cm2 T-Score: - 1.6 Z-Score: + 0.3 Change from prior in 2019: Decrease 14.2%. Right femoral neck BMD: 0.793 g/cm2 T-Score: - 1.8 Z-Score: + 0.2 Change from prior in 2019: Decrease 17.7%. Left hip BMD: 0.847 g/cm2 T-Score: - 1.3 Z-Score: + 0.5 Change from prior in 2019: Decrease 19.3%. Right hip BMD: 0.803 g/cm2 T-Score: - 1.6 Z-Score: + 0.1 Change from prior in 2019: Decrease 22.3%. WHO criteria: Normal: T-score at or above -1 SD Osteopenia: T-score between -1.1 and -2.4 SD Osteoporosis: T-score at or below -2.5 SD FRAX RISK CALCULATION (USED FOR OSTEOPENIA ONLY): 10-year probability of major osteoporotic fracture: 13.2%. 10-year probability of hip fracture: 2.9%. Sharon [employer] Levi DO DEXA Final Result * ANTI HCV (12/31/2022 9:38 AM CDT) [facility] HEPATITIS C ANTIBODY Non-Reacti ve Non-React thierry 12/31/2022 4:13 PM CDT [facility] Comment:Please note, per www .CDC.gov: If a patient is known to be at high risk of HCV infection, or is symptomatic, and the physician's suspicion of HCV infection is high, HCV RNA testing is often employed and is of diagnostic value, even after an initial negative anti-HCV test result. Blood BLOOD SPECIMEN / Unknown Venipuncture / Unknown 12/31/2022 9:38 AM CDT 12/31/2022 9:42 AM CDT [employer] DO SEND OUTS Final Result [facility] [address] [place] [address], * (ABNORMAL) LC LIPID PANEL AND CHOL/HDL RATIO (06/25/2022 9:04 AM CDT) [facility] Cholesterol, Total 210(H) 100 - 199 mg/dL 06/27/2022 9:10 AM CDT [facility] Triglycerides 60 0 - 149 mg/dL 06/27/2022 9:10 AM CDT [facility] ([facility]) HDL Cholesterol 106 >39 mg/dL 9:10 AM CDT [facility] ([facility]) VLDL Cholesterol Lucie 11 5 - 40 mg/dL 06/27/2022 9:10 AM T [facility] ([facility]) LDL Chol Calc ([facility]) 93 0 - 99 mg/dL 06/27/2022 9:10 AM CDT [facility] ([facility]) T. Chol/HDL Ratio 2.0 0.0 - 4.4 ratio 06/27/2022 9:10 AM CDT [facility] ([facility]) Comment: T. Chol/HDL Ratio Men Women 1/2 Avg.Risk 3.4 3.3 Avg.Risk 5.0 4.4 2X Avg.Risk 9.6 7.1 3X Avg.Risk 23.4 11.0 Blood BLOOD SPECIMEN / Unknown Venipuncture / Unknown 06/25/2022 9:04 AM CDT 06/25/2022 9:13 AM CDT Narrative [facility]) - 06/27/2022 9:10 AM CDT Performed at: [address] [place] [id number] Payroll Benefits Clerk: Eddi Paz MD, Phone: [phone] us Joanne Garay MD SEND OUTS Final Resul t [facility] ([facility]) [address] [place] [id number], from Last 3 Months or Most Recently Relevant to Health Maintenance Insurance [place] ONLY [place] HB ONLY MEDICARE PART B HB ONLY MEDICARE PART A HB ONLY Advance Directives * Full Code (Latest Code Status on File) Date Activated Date Inactivated Comments 06/29/2024 12:58 PM 06/29/2024 4:48 PM Question Answer Comments Code Status Discussion: Unable to Assess Preferences, Provider to review later * Full Code Date Activated Date Inactivated Comments 06/29/2024 7:54 AM 06/29/2024 12:58 PM Question Answer Comments Code Status Discussion: Unable to Assess Preferences, Provider to review later * Full Code Date Activated Date Inactivated Comments 07/21/2023 10:51 PM 07/24/2023 6:07 PM Question Answer Comments Code Status Discussion: Reviewed Preferences Care Teams Director Professional Services Relationship Specialty Start Date End Date Sharon Sims DO [address] [place] [address] PCP - General Family Practice 09/08/22 Hunter Harrison MD Orthopedics Surgery - Orthopedics 09/08/11 Cassie Howell MD Oncology 08/14/20 Nola Navarro MBBS [address] [address] Pulmonary Medicine 06/12/21 [place] [address] [place] [address] Endocrinology 02/15/24
--- OUTSIDE RECORDS SUMMARY | 2024-12-06 00:16 | XMS_ITS | Clinical Summary ---
Author Organization [facility] Address [address] [address] Phone Care Team Providers Care Baggage Agent Name Role Phone Sharon Sims MD Primary Care Provider [phone] Allergies Active Allergy Reactions Criticality Noted Date Comments Erythromycin Other Low 10/23/2022 GI upset Kiwi Extract Swelling Medium 10/23/2022 Throat swelling Nickel RASH Medium 10/23/2022 Medications calcium carbonate 600 MG tablet Take 600 mg by mouth one time a day. Take with food. Active celecoxib (CeleBREX) 400 MG capsule Take 400 mg by mouth two times a day. Active folic acid 400 MCG tablet Take 400 mcg by mouth one time a day. Active lisinopril (Prinivil, Zestril) 40 MG tablet Take 40 mg by mouth one time a day. Active METAMUCIL FIBER OR Take 1 Tablet by mouth one time a day. Active Multiple Vitamins-Honcut als (multivitamin with minerals) tablet Take 1 Tablet by mouth one time a day. Active levETIRAcetam (Keppra) 750 MG tablet Take 750 mg by mouth one time a day. Do not crush. Active levothyroxine (Synthroid) 125 MCG tablet Take 125 mcg by mouth one time a day. Active traZODone (Desyrel) 50 MG tablet Take 100 mg by mouth at bedtime. Active etanercept (Enbrel) 50 MG/ML solution prefilled syringe Inject 50 mg under the skin one time a week. Store in refrigerator Active acetaminophen (Tylenol) 500 MG tablet Take 2 Tablets by mouth three times a day. Limit acetaminophen to 4000 mg per day from all sources. 180 Tablet 3 Active senna-docusate (Senokot-S) 8.6-50 MG oral tablet Take 2 Tablets by mouth two times a day. 100 Tablet 3 Active methotrexate 50 MG/2ML injection Inject 2 mL under the skin one time a week. 3 Active Active Problems No known active problems Resolved Problems Problem Noted Date Diagnosed Date Resolved Date Primary osteoarthritis of right knee 10/16/2022 10/28/2022 Immunizations Immunization Administration Dates Next Due COVID-19 MRNA Vaccine (Moder na) 12+ Yrs Seasonal 12/01/2022 COVID-19 mRNA Vaccine (Moder na - 18+ Yrs) 05/29/2021,10/25/2020,05/24/2020,2020 COVID-19 mRNA Vaccine Bivale nt (Moderna) 12/26/2021 Influenza H1N1 With Preservative 02/06/2009 Influenza High Dose Quadrivalent 12/01/2022 Influenza Intradermal (18-64 Yrs) Flu Clinic 12/26/2014 Influenza Trivalent Adjuvant ed Preservative Free (Fluad) 12/17/2016 Pneumococcal Conjugate, (Prevnar)13-valent 05/27/2017 Pneumovax 23 07/14/2018,09/28/2006,06/12/2000 Respiratory Syncytial Virus (RSV) Vaccine, Recombinant (Arexvy) 12/31/2022 TD >7Yrs Preservative Free 02/07/2016 Typhoid VICPS 08/14/2005 Yellow Fever 01/31/2008 Zoster Shingrix 2 Dose (Shingles) 12/05/2019,11/2019 Surgical History Surgery Date Site/Laterality Comments CORRECT BUNION,METATARSAL OSTEOTOMY DILATION AND CURETTAGE OF UTERUS ARTHRO, SUBTALAR SURG W ARTHRO MIDDLE EAR SURGERY TOTAL KNEE ARTHROPLASTY 10/27/2022 Knee/Right Procedure: Right total knee arthroplasty; Surgeon: Andrea Mcfadden MD; Location: [facility] Medical devices from this surgery are in the Medical Devices section. Medical History Medical History Date Comments Hypothyroidism Rheumatoid arthritis (HCC) Seizure (HCC) Insomnia Essential (primary) hypertension Interstitial lung disease (HCC) Pleural effusion, not elsewhere classified Primary osteoarthritis of right knee 10/16/2022 Family History Medical History Relation Comments Lung Cancer Mother Relation Status Comments Father Mother Social History Tobacco Use Types Packs/Day Years Used Date Smoking Tobacco: Former Cigarettes Q uit: 1986 Smokeless Tobacco: Never Tobacco Cessation:Counseling Given: Not Answered Alcohol Use Standard Drinks/Week Comments Yes 1 (1 standard drink = 0.6 oz pur e alcohol) PHQ-2 Answer Date Recorded PHQ-2 Total 0 07/16/2023 EH IP Custom IPV Answer Date Recorded Do you feel UNSAFE in any of your personal relationships with your family members or any other acquaintances? No 2022 Comments No Sex and Gender Information Value Date Recorded Sex Assigned at Not on file Legal Sex Female 12:00 PM CDT Gender Identity Not on file Sexual Orientation Not on file Obstetrics History Last Filed Vital Signs Vital Sign Reading Time Taken Comments Blood Pressure 113/71 10/15/2023 12:06 PM CDT Pulse 87 10/15/2023 12:06 PM CDT Temperature 36.8 C (98.3 F) 07/16/2023 1:03 PM CDT Respiratory Rate 16 10/28/2022 6:57 AM CDT Oxygen Saturation 98% 07/13/2023 11:30 AM CDT Inhaled Oxygen Concentration - - Weight 61 kg (134 lb 7.7 oz) 10/15/2023 12:06 PM CDT Height 165.1 cm (5' 5) 10/15/2023 12:06 PM CDT Body Mass Index 22.38 10/15/2023 12:06 PM CDT Plan of Treatment Health Maintenance Due Date Last Done Comments CT Colonography 1950 Colonoscopy 1950 MEDICARE AWV 1950 Sigmoidoscopy 1950 PERTUSSIS (Standing Order) 07/25/1970 DXA,FEMALES AGE 65 OR GREATER 07/25/2016 FIT/FOBT 01/03/2024 01/02/2023 Cologuard 06/26/2024 06/26/2021, 06/01, 02/02/2018 Colorectal Cancer Screening 06/26/2024 MAMMO,SCREEN 08/19/2024 08/20/2023, 08/01, 08/06/2022, Additional history exists COVID-19 Vaccine ( season) 2024 12/01/2022, 12/26/2021, 05/29/2021, Additional history exists Influenza Vaccine Seasonal (Standing Order) (#1) 2024 12/01/2022, 12/17/2016, 12/26/2014, Additional history exists TETANUS (Standing Order) 02/06/2026 02/07/2016 Pneumococcal Vaccine: 50+ yrs (Standing Order) Completed 07/14/2018, 05/27/2017, 09/28/2006, Additional history exists Shingrix (Zoster recombinant) vaccine (Standing Order) Completed 12/05/2019, 09/08/2019 RSV Vaccination (60+ yrs) (Abrysvo/Arexvy) Completed 12/31/2022 HPV Vaccine (Standing Order) Aged Out No longer eligible based on patient's age to complete this topic Hepatitis B Vaccine (Standing Order) Aged Out No longer eligible based on patient's age to complete this topic Medical Devices Implanted Type Area Emergency Medical Service Manager Device Identifier Shelf Expiration Date Model / Serial / Lot Cement Bone Hv Simplex Fs W Gentamicin - [id number] Implanted:Qty: 1 on 10/27/2022 by Andrea Mcfadden MD at [facility] Right: Knee [id number] 04/01/2024 6195-1-001 / NA / [id number] Tibia Persona Sz D Rt 5 Deg Stemmed - [id number] Implanted:Qty: 1 on 10/27/2022 by Andrea Mcfadden MD at [facility] Right: Knee [id number] 08/10/2032 42-5320-06 7- / NA / [id number] Patella Persona 32mm Poly - [id number] Implanted:Qty: 1 on 10/27/2022 by Andrea Mcfadden MD at [facility] Right: Knee [id number] 08/14/2027 42-5400-00 0-32 / NA / [id number] Femur Persona Cr Rocky Nitrided Std Sz 7r - [id number] Implanted:Qty: 1 on 10/27/2022 by Andrea Mcfadden MD at [facility] Right: Knee [id number] 05/17/2032 42-5726-06 2-02 / NA / [id number] Art Surf Deondre Elliott-E Cr 10mm Rt - [id number] Implanted:Qty: 1 on 10/27/2022 by Andrea Mcfadden MD at [facility] Right: Neli [id number] 10/15/2024 42-5220-00 4-10 / NA / [id number] Procedures Procedure Name Priority Date/Time Associated Diagnosis Comments OS MAMMOGRAM Routine 08/20/2023 12:00 AM CDT EXTERNAL IFOB Routine 01/02/2023 2:57 PM CDT EXTERNAL COLOGUARD Routine 06/26/2021 9: 00 AM CDT from Last 3 Months or Most Recently Relevant to Health Maintenance Results * OS MAMMOGRAM (08/20/2023 12:00 AM CDT) 08/20/2023 Narrative Procedure Note 11/20/2023 The actual exam was performed at [facility] 08[facility]. This exam does not have a report residing in this EMR. Please check for ascanned in report, Care Everywhere Outside Records, or call the performinglocation for the report. This order was placed into the system and automatically finalized on11/20/2023. [facility] OS FILMS IMAGING ORDERABLES F inal Result * EXTERNAL IFOB/FIT (01/02/2023 2:57 PM CDT) EXTERNAL IFOB/FIT Negative Negative [facility]ATORY Comment:Care Everywhere/Lab Results/[facility] 01/02/2023 2:57 PM CDT Provider Abstract [facility] Final Resul t OUTSIDE LABORATORY * EXTERNAL COLOGUARD (06/26/2021 9:00 AM CDT) EXTERNAL COLOGUARD Negative Negative OUTSIDE LABORATORY Comment:Care Everywhere/Lab Results/[facility] 06/26/2021 9:00 AM CDT us Provider Abstract MD [facility] Final Resul t OUTSIDE LABORATORY from Last 3 Months or Most Recently Relevant to Health Maintenance Insurance MEDICARE COST PART A&B [facility] [place] BLUE MEDICARE COST PART A&B Advance Directives For more information, please contact: [phone] * Full Code (Latest Code Status on File) Date Activated Date Inactivated Comments 10/27/2022 10:12 AM 10/27/2022 2:12 PM Care Teams Baggage Agent Relationship Specialty Start Date End Date Sharon Sims MD [address] [place] [address] PCP - General Family Medicine 10/15/23
[2024-12-08 07:55] LABS: Albumin 3.70 g/dL (3.75-5.01)
== END 2024-12-05 08:59 | disposition home or self-care (01) ==
LOC: NPINS 08:58
PROVIDERS: PCP Family Medicine; Visit Provider Family Medicine
DX: E83.52 Hypercalcemia (principal)
CPT/HCPCS: 80048; 82306; 82330; 82397; 83520; 84156; 84165; 85025; 86335